=== PATIENT | female | born 1980 | race Caucasian/White ===

== ENCOUNTER 2016-09-25 10:56 | Outpatient (CLI) | payer OTHER ==
[2016-09-25 11:32] LABS: CALCIUM 9.2 mg/dL (8.5-10.3); CREATININE 0.6 mg/dL (0.4-1.0)
== END 2016-09-25 10:57 | disposition home or self-care (01) ==
LOC: LAB 10:56
DX: E87.5 Hyperkalemia (principal)
CPT/HCPCS: 36415; 80048

== ENCOUNTER 2017-02-28 17:43 | Emergency (ER) | payer OTHER ==
[2017-02-28] MEDS ORDERED: KETOROLAC 60 MG/2 ML VIAL IM STA (18:15)
[2017-02-28] MEDS ORDERED: diazePAM INJ 5 MG/ML SYRINGE IM STA (18:15)
[2017-02-28] MEDS ORDERED: DEXAMETHASONE 10 MG/ML VIAL PO STA (18:17)
--- NOTE | 2017-02-28 18:17 | ED Physician Documentation ---
History of Present Illness - Stated complaint Stated Complaint: RT HIP/BACK PX INTO LEG - Chief complaint Chief Complaint: Ext Problem - History obtained from History obtained from: Patient - History of Present Illness Timing: How many days ago (10) Pain level max: 8 Pain level now: 6 Improved by: rest Worsened by: standing, walking - Additonal information Additional information: Patient is a 36-year-old female who presents to the emergency department stating that she fell approximately 10 days ago after being tripped by her dogs. Landed on the right hip. The pain improved over the next few days, then started worsening 3-4 days ago. No recurrent injury. Occasionally feels the pain shoot to the right hip. Feels like it is deep in her back and pelvis. Has not had any lightheadedness, near syncope. No vaginal bleeding. No bruising. 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 HEENT: None Psych: None Musculoskeletal: Fibromyalgia Derm: None - Past Surgical History Past Surgical History: No HEENT: Myringotomy (tubes) - Present Medications Home Medications: Ambulatory Orders Medication Instructions Recorded Confirmed Meloxicam [Mobic] 15 mg PO DAILY PRN #20 tablet 02/28/17 diazePAM [Valium] 5 mg PO TID PRN #10 tablet 02/28/17 - Allergies Allergies/Adverse Reactions: Allergies Allergy/AdvReac Type Severity Reaction Status Date / Time No Known Drug Allergies Allergy Verified 03/17/16 19:36 - Social History Does the pt smoke?: Yes Smoking Status: Current every day smoker Does the pt drink ETOH?: No Does the pt have substance abuse?: No - Immunizations Immunizations are current?: Yes Immunizations: TDAP >10years/unknown - POLST Patient has POLST: No PD ED PE NORMAL - Vitals Vital signs reviewed: Yes - General General: Alert and oriented X 3, No acute distress - HEENT HEENT: Moist mucous membranes - Neck Neck: Supple, no meningeal sign - Cardiac Cardiac: RRR - Respiratory Respiratory: No respiratory distress, Clear bilaterally - Abdomen Abdomen: Soft, Non tender, Non distended - Back Back: No spinal TTP, Other (paraspinal spasm R low lumbar) - Derm Derm: Warm and dry - Extremities Extremities: No edema, Other (pain with internal and external rotation of the R hip. no bony tenderness. Normal skin color. ) - Neuro Neuro: Alert and oriented X 3, manager advertising 2-12 intact, No motor deficit, No sensory deficit, Normal speech, Other (normal bilateral lower extremity patellar and ankle jerk reflexes. Normal great toe extension bilaterally) Eye Opening: Spontaneous Motor: Obeys Commands Verbal: Oriented GCS Score: 15 - Psych Psych: Normal mood, Normal affect Results - Vitals Vitals: Vital Signs - 24 hr 02/28/17 02/28/17 17:48 19:09 Temperature 37.2 C 37.2 C Heart Rate 105 H 78 Respiratory 18 18 Rate Blood Pressure 130/81 H 111/64 O2 Saturation 99 100 Oxygen O2 Source Room air PD MEDICAL DECISION MAKING - ED course Complexity details: re-evaluated patient, considered differential (no cauda equina, no spinal epidural abscess, no fracture, no aortic dissection or evidence of aneursym rupture), d/w patient ED course: Patient is a 36-year-old female who presents to the emergency department with what appears to be a right lumbar strain. No midline tenderness over the spine. No bony tenderness over any of the pelvis or hip. Ambulating well. Will trial on pain medication for home and follow-up with her doctor. There is no visible bruising or ecchymosis. No evidence of retroperitoneal bleed. Patient counseled regarding signs and symptoms for which I believe and urgent re -evaluation would be necessary. Patient with good understanding of and agreement to plan and is comfortable going home at this time This document was made in part using voice recognition software. While efforts are made to proofread this document, sound alike and grammatical errors may occur. Departure - Departure Disposition: 01 Home, Self Care Clinical Impression: Low back strain Qualifiers: Encounter type: initial encounter Qualified Code(s): S39.012A - Strain of muscle, fascia and tendon of lower back, initial encounter Condition: Good Instructions: ED Sprain Strain Lumbar Follow-Up: Santosh Garcia MD [Primary Care Provider] - Within 1 week Prescriptions: diazePAM [Valium] 5 mg PO TID PRN #10 tablet PRN Reason: Spasms Meloxicam [Mobic] 15 mg PO DAILY PRN #20 tablet PRN Reason: pain Comments: do not drive or operate heavy machinery while taking the valium. return if you worsen. Do not drink alcohol or drive while on narcotic pain medicine. Note that many narcotic pain relievers also contain tylenol/acetaminophen. Please ensure that your total dose of acetaminophen from all sources does not exceed 3 grams (3000mg) per day. You may constipated on this medication, take a stool softener such as "Colace" twice a day while you are on it. Also recommend a gkve-tcn-thnozji laxative such as senna or MiraLAX any day that you do not have a bowel movement. If you received narcotic pain medication in the emergency department, do not drive or operate machinery for the next 24 hours. Discharge Date/Time: 02/28/17 19:09
[2017-02-28] MEDS ORDERED: DEXAMETHASONE 10 MG/ML VIAL ONE (18:38)
[2017-02-28] MEDS ORDERED: KETOROLAC 60 MG/2 ML VIAL ONE (18:38)
[2017-02-28] MEDS ORDERED: CHERRY SYRUP 10 ML UDC PO ONE (18:38)
[2017-02-28 19:11] VITALS: BP 111/64
== END 2017-02-28 19:09 | disposition home or self-care (01) ==
LOC: ED 17:43
DX: S39.012A Strain of muscle, fascia and tendon of lower back, initial encounter (principal); W01.0XXA Fall on same level from slipping, tripping and stumbling without subsequent striking against object, initial encounter; Y92.019 Unspecified place in single-family (private) house as the place of occurrence of the external cause; M79.7 Fibromyalgia; F17.200 Nicotine dependence, unspecified, uncomplicated
CPT/HCPCS: 96372; 99283; A9270

== ENCOUNTER 2017-06-14 08:34 | Emergency (ER) | payer OTHER ==
[2017-06-14 08:58] VITALS: BP 122/74
[2017-06-14] MEDS ORDERED: DEXAMETHASONE 10 MG/ML VIAL PO STA (09:17)
[2017-06-14] MEDS ORDERED: KETOROLAC 60 MG/2 ML VIAL IM STA (09:17)
--- NOTE | 2017-06-14 09:19 | ED Physician Documentation ---
PD HPI TRUNK INJURY - Stated complaint Stated Complaint: CHEST INJURY - Chief complaint Chief Complaint: General - History obtained from History obtained from: Patient, Family - History of Present Illness Location: Right chest Type of injury: Blunt / blow Timing - onset: How many days ago (3) Timing - duration: Days (3) Timing - details: Abrupt onset, Still present Quality: Pain, Sharp Improved by: Rest, Immobilization Worsened by: Moving, Palpating Associated symtptoms: No: Weakness, Numbness, Tingling, Swelling Where injury occured: Home Similar symptoms before: Has not had sx before Recently seen: Not recently seen - Additional information Additional information: 36-year-old female was at home 3 days ago when she went to sit down her couch and she sat down with the arm of the chair against her right chest wall. She bruised her breast with this and at the time had some pain which is now much worse. She is having some trouble moving around and it hurts to breathe. Review of Systems Constitutional: denies: Fever Eyes: denies: Decreased vision Ears: denies: Ear pain Nose: denies: Congestion Throat: denies: Sore throat Cardiac: reports: Chest pain / pressure. 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 HEENT: None Psych: None Musculoskeletal: Fibromyalgia Derm: None - Past Surgical History Past Surgical History: No HEENT: Myringotomy (tubes) - Present Medications Home Medications: Ambulatory Orders Medication Instructions Recorded Confirmed Meloxicam [Mobic] 15 mg PO DAILY PRN #20 tablet 02/28/17 diazePAM [Valium] 5 mg PO TID PRN #10 tablet 02/28/17 HYDROcod/ACETAM 5/325 [[place] 5/325] 1 - 2 ea PO Q6H PRN #15 tablet 06/14/17 - Allergies Allergies/Adverse Reactions: Allergies Allergy/AdvReac Type Severity Reaction Status Date / Time No Known Drug Allergies Allergy Verified 03/17/16 19:36 - Social History Does the pt smoke?: Yes Smoking Status: Current every day smoker Does the pt drink ETOH?: No Does the pt have substance abuse?: No - Immunizations Immunizations are current?: Yes Immunizations: TDAP >10years/unknown - POLST Patient has POLST: No PD ED PE NORMAL - Vitals Vital signs reviewed: Yes (normal ) - General General: Alert and oriented X 3, Well developed/nourished, Other (The patient is clutching the right side of her chest and appears to be in pain ) - HEENT HEENT: Atraumatic, PERRL, EOMI - Neck Neck: Supple, no meningeal sign - Cardiac Cardiac: RRR, No murmur - Respiratory Respiratory: No respiratory distress, Clear bilaterally, Other (There is chest wall tenderness to the right lateral chest wall over the ribs and right breast. ) - Abdomen Abdomen: Soft, Non tender - Back Back: No CVA TTP, No spinal TTP - Derm Derm: Normal color, Warm and dry, No rash - Extremities Extremities: No deformity, No edema - Neuro Neuro: No motor deficit, No sensory deficit Eye Opening: Spontaneous Motor: Obeys Commands Verbal: Oriented GCS Score: 15 - Psych Psych: Normal mood, Normal affect Results - Vitals Vitals: Vital Signs - 24 hr 06/14/17 08:52 Temperature 36.6 C Heart Rate 92 Respiratory 16 Rate Blood Pressure 122/74 O2 Saturation 100 Oxygen O2 Source Room air - Rads (name of study) ribs with chest Radiology: Prelim report reviewed (Impression: No radiographic evidence for acute rib fracture. No pneumothorax.), EMP read indepedently, See rad report PD MEDICAL DECISION MAKING - ED course Complexity details: reviewed results, re-evaluated patient, considered differential, d/w patient, d/w family ED course: 36-year-old female with a chest wall contusion has increased pain and has no evidence of fracture on x-ray she is administered dexamethasone orally and Toradol IM. We will provide some pain medication for the next week. Departure - Departure Disposition: 01 Home, Self Care Clinical Impression: Chest wall contusion Qualifiers: Encounter type: initial encounter Laterality: right Qualified Code(s): S20.211A - Contusion of right front wall of thorax, initial encounter Condition: Stable Instructions: ED Contusion Chest Wall, ED Contusion Vs Minor Fx Rib Follow-Up: Santosh Garcia MD [Primary Care Provider] - Prescriptions: HYDROcod/ACETAM 5/325 [[place] 5/325] 1 - 2 ea PO Q6H PRN #15 tablet PRN Reason: Pain
--- NOTE | 2017-06-14 09:38 | XRAY Preliminary Report ---
Exam: XR RIBS W/PA CHEST RT IMPRESSION: No radiographic evidence for acute rib fracture. No pneumothorax. [facility] SITE ID: [id number]
--- NOTE | 2017-06-14 09:39 | XRAY Report ---
EXAM: RIGHT/LEFT/BILATERAL RIB RADIOGRAPHY EXAM DATE: 06/14/2017 09:19 AM. CLINICAL HISTORY: Injury. COMPARISON: 10/17/2014. TECHNIQUE: 1 view of the chest and 2 views of the ribs. FINDINGS: Bones: BB markers placed at the areas of reported right rib pain. No fracture or bone lesion. Lungs: No focal opacities. No pneumothorax. No pleural effusions. Mediastinum: Heart and mediastinal contours are unremarkable. Other: None. IMPRESSION: No radiographic evidence for acute rib fracture. No pneumothorax. [facility] Referring Provider Line: [phone] SITE ID: [id number]
== END 2017-06-14 10:08 | disposition home or self-care (01) ==
LOC: ED 08:34
DX: S20.211A Contusion of right front wall of thorax, initial encounter (principal); W22.09XA Striking against other stationary object, initial encounter; F17.200 Nicotine dependence, unspecified, uncomplicated
CPT/HCPCS: 96372; 99283

== ENCOUNTER 2018-01-02 11:10 | Emergency (ER) | payer OTHER ==
[2018-01-02 12:25] LABS: BILIRUBIN,URINE NEGATIVE (NEGATIVE); GLUCOSE, URINE (UA) NEGATIVE (NEGATIVE); KETONES,URINE (UA) NEGATIVE (NEGATIVE); LEUKOCYTE ESTERASE, URINE NEGATIVE (NEGATIVE); NITRITE,URINE NEGATIVE (NEGATIVE); OCCULT BLOOD,URINE LARGE (NEGATIVE); PH,URINE 6.5 PH (5.0-7.5); PROTEIN,URINE NEGATIVE (NEGATIVE); UROBILINOGEN,URINE 0.2 (NORMAL) E.U./dL (NORMAL)
[2018-01-02 12:27] LABS: CLARITY,URINE HAZY (CLEAR); HCG UR QUAL NEGATIVE
[2018-01-02 12:40] LABS: BACTERIA,URINE Rare /HPF (None Seen); RBC,URINE TNTC /HPF (0-5); SQUAMOUS EPITHELIAL CELL,UR FEW Squamous (<= Few)
[2018-01-02] MEDS ORDERED: KETOROLAC 60 MG/2 ML VIAL IM STA (13:09)
[2018-01-02] MEDS ORDERED: LORazepam 0.5 MG TABLET PO STA (13:09)
--- NOTE | 2018-01-02 13:19 | ED Physician Documentation ---
History of Present Illness - Stated complaint Stated Complaint: PANIC ATTACK - Chief complaint Chief Complaint: General - History obtained from History obtained from: Patient, Family - History of Present Illness Timing: How many weeks ago (several) Pain level max: 7 Pain level now: 6 Improved by: nothing Worsened by: last son starting preschool - Additonal information Additional information: Patient is a 37-year-old female who presents to the emergency department with a worsening of her anxiety over the past several days. States has been unable to sleep. Has not been on any medication recently for this, is seen a counselor. They have talked about daily medication but have not started it yet. She denies any fevers, chills, chest pain. Denies any possibility of . Is not suicidal or homicidal. She does use cigarettes, but denies any use of alcohol or drugs including marijuana Review of Systems Constitutional: denies: Fever, Chills Ears: denies: Ear pain Nose: denies: Rhinorrhea / runny nose, Congestion Throat: denies: Sore throat Cardiac: denies: Chest pain / pressure Respiratory: denies: Cough GI: denies: Abdominal Pain, Vomiting, Diarrhea : denies: Now EGA Skin: denies: Rash Musculoskeletal: reports: Other (generalized body pain c/w her fibromyalgia). denies: Neck pain, Back pain Neurologic: denies: Generalized weakness, Headache Psychiatric: reports: Anxiety. 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 HEENT: None Psych: Anxiety Musculoskeletal: Fibromyalgia Derm: None - Past Surgical History Past Surgical History: Yes HEENT: Myringotomy (tubes) - Present Medications Home Medications: Ambulatory Orders Medication Instructions Recorded Confirmed LORazepam [Ativan] 0.5 mg PO Q6H PRN #10 tablet 01/02/18 Meloxicam [Mobic] 7.5 mg PO BID PRN #20 tablet 01/02/18 - Allergies Allergies/Adverse Reactions: Allergies Allergy/AdvReac Type Severity Reaction Status Date / Time No Known Drug Allergies Allergy Verified 01/02/18 11:23 - Social History Does the pt smoke?: Yes Smoking Status: Current every day smoker Does the pt drink ETOH?: No Does the pt have substance abuse?: No - Immunizations Immunizations are current?: Yes Immunizations: TDAP >10years/unknown - POLST Patient has POLST: No PD ED PE NORMAL - Vitals Vital signs reviewed: Yes - General General: Alert and oriented X 3, No acute distress, Other (tearful at times) - HEENT HEENT: PERRL, Moist mucous membranes, Pharynx benign, Other (R TM has chronic perforation. no purulent drainage. L TM with scarring but no fluid) - Neck Neck: Supple, no meningeal sign, No adenopathy - Cardiac Cardiac: RRR, Strong equal pulses - Respiratory Respiratory: No respiratory distress, Clear bilaterally - Abdomen Abdomen: Soft, Non tender, Non distended - Back Back: No CVA TTP, No spinal TTP - Derm Derm: Warm and dry - Extremities Extremities: No edema, No calf tenderness / cord - Neuro Neuro: Alert and oriented X 3 - Psych Psych: Other (tearful, anxious) Results - Vitals Vitals: Vital Signs - 24 hr 01/02/18 01/02/18 01/02/18 11:21 13:37 14:03 Temperature 36.7 C 36.8 C 36.6 C Heart Rate 95 76 85 Respiratory 22 16 16 Rate Blood Pressure 158/139 H 101/71 106/61 O2 Saturation 100 100 100 Oxygen O2 Source Room air - Labs Labs: Laboratory Tests 01/02/18 12:14 Urine Color LIGHT YELLOW Urine Clarity HAZY Urine pH 6.5 Ur Specific [place] <=1.005 Urine Protein NEGATIVE Urine Glucose (UA) NEGATIVE Urine Ketones NEGATIVE Urine Occult Blood LARGE H Urine Nitrite NEGATIVE Urine Bilirubin NEGATIVE Urine Urobilinogen 0.2 (NORMAL) Ur Leukocyte Esterase NEGATIVE Urine RBC TNTC H Urine WBC 0-3 Ur Squamous Epith Cells FEW Squamous Urine Bacteria Rare Ur Microscopic Review INDICATED Urine Culture Comments NOT INDICATED Urine HCG, Qual NEGATIVE PD MEDICAL DECISION MAKING - ED course Complexity details: reviewed results, re-evaluated patient, considered differential, d/w patient, d/w family ED course: Patient is a 37-year-old female who presents to the emergency department with increasing anxiety over the past several days. Given a dose of Ativan and feels much better. Was also given a dose of Toradol for her fibromyalgia pain. She is well-appearing, nontoxic. Afebrile. Not suicidal or homicidal. Will prescribe a small amount of Ativan for home and follow-up closely with her doctor. Patient counseled regarding signs and symptoms for which I believe and urgent re-evaluation would be necessary. Patient with good understanding of and agreement to plan and is comfortable going home at this time This document was made in part using voice recognition software. While efforts are made to proofread this document, sound alike and grammatical errors may occur. - Sepsis Event Vital Signs: Vital Signs - 24 hr 01/02/18 01/02/18 01/02/18 11:21 13:37 14:03 Temperature 36.7 C 36.8 C 36.6 C Heart Rate 95 76 85 Respiratory 22 16 16 Rate Blood Pressure 158/139 H 101/71 106/61 O2 Saturation 100 100 100 Oxygen O2 Source Room air Departure - Departure Disposition: 01 Home, Self Care Clinical Impression: Anxiety, Fibromyalgia Condition: Good Instructions: ED Panic Attack Follow-Up: SHAWN COPE DO [Primary Care Provider] - Within 1 week Prescriptions: LORazepam [Ativan] 0.5 mg PO Q6H PRN #10 tablet PRN Reason: Anxiety Meloxicam [Mobic] 7.5 mg PO BID PRN #20 tablet PRN Reason: Pain Comments: Return if you worsen. Use the Ativan as needed. Follow-up with your doctor for further prescriptions. You may benefit from a daily anxiety medication. Discharge Date/Time: 01/02/18 14:03
[2018-01-02 14:06] VITALS: BP 106/61
== END 2018-01-02 14:03 | disposition home or self-care (01) ==
LOC: ED 11:10
DX: F41.9 Anxiety disorder, unspecified (principal); M79.7 Fibromyalgia; F17.200 Nicotine dependence, unspecified, uncomplicated
CPT/HCPCS: 81001; 81025; 96372; 99283; A9270; 81003; 87086

== ENCOUNTER 2018-04-03 12:39 | Emergency (ER) | payer OTHER ==
[2018-04-03 12:50] VITALS: BP 104/65
--- NOTE | 2018-04-03 13:00 | ED Physician Documentation ---
History of Present Illness - Stated complaint Stated Complaint: R EAR PX - Chief complaint Chief Complaint: Heent - History obtained from History obtained from: Patient, Family - History of Present Illness Timing: How many days ago (2) Pain level max: 0 Pain level now: 0 Improved by: nothing Worsened by: nothing - Additonal information Additional information: Patient presents to the emergency department with right ear pain for the past several days and feeling of unsteadiness on her feet and vertigo. Similar to prior ear infections in the past. Still has holes in her bilateral ears from tympanostomy tubes that did not heal correctly. Has not noticed any drainage. No fevers. 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 HEENT: None Psych: Anxiety Musculoskeletal: Fibromyalgia Derm: None - Past Surgical History Past Surgical History: Yes HEENT: Myringotomy (tubes) - Present Medications Home Medications: Ambulatory Orders Medication Instructions Recorded Confirmed LORazepam [Ativan] 0.5 mg PO Q6H PRN #10 tablet 01/02/18 Meloxicam [Mobic] 7.5 mg PO BID PRN #20 tablet 01/02/18 Amoxicillin 500 mg PO TID #30 capsule 04/03/18 Meclizine [Antivert] 12.5 - 25 mg PO Q6H PRN #30 tablet 04/03/18 - Allergies Allergies/Adverse Reactions: Allergies Allergy/AdvReac Type Severity Reaction Status Date / Time No Known Drug Allergies Allergy Verified 04/03/18 12:45 - Social History Does the pt smoke?: Yes Smoking Status: Current every day smoker Does the pt drink ETOH?: No Does the pt have substance abuse?: No - Immunizations Immunizations are current?: Yes Immunizations: TDAP >10years/unknown - POLST Patient has POLST: No PD ED PE NORMAL - Vitals Vital signs reviewed: Yes - General General: Alert and oriented X 3, No acute distress - HEENT HEENT: Moist mucous membranes, Other (Bilateral tympanic membranes have perforations to them. 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 Will place on antibiotics. Has not seen ENT for several years, recommend that she follow-up with ENT given that her ears had not caused her issues for approximately 20 years and now has had 4 infections in the past year. Patient counseled regarding signs and symptoms for which I believe and urgent re- evaluation would be necessary. Patient with good understanding of and agreement to plan and is comfortable going home at this time This document was made in part using voice recognition software. While efforts are made to proofread this document, sound alike and grammatical errors may occur. Departure - Departure Disposition: 01 Home, Self Care Clinical Impression: Vertigo Otitis media Qualifiers: Otitis media type: suppurative Chronicity: acute Laterality: right Recurrence: not specified as recurrent Spontaneous tympanic membrane rupture: without spontaneous rupture Qualified Code(s): H66.001 - Acute suppurative otitis media without spontaneous rupture of ear drum, right ear Condition: Good Instructions: ED Otitis Media Acute Adult Follow-Up: [facility] [Provider Group] [facility] [Provider Group] Anthony Poe MD [Physician No Access] - SHAWN COPE DO [Primary Care Provider] - (in 1-2 weeks) Prescriptions: Amoxicillin 500 mg PO TID #30 capsule Meclizine [Antivert] 12.5 - 25 mg PO Q6H PRN #30 tablet PRN Reason: Vertigo Comments: Take all antibiotics until gone. Return if you worsen. Follow-up with your doctor for further evaluation and care. As your areas are beginning to give you more issues, you should follow-up with ENT for repeat evaluation. You will likely need a referral from your doctor. [facility] also has an office in [facility]
[2018-04-03] MEDS ORDERED: MECLIZINE 12.5 MG TABLET PO STA (13:01)
== END 2018-04-03 13:06 | disposition home or self-care (01) ==
LOC: ED 12:39
DX: H66.001 Acute suppurative otitis media without spontaneous rupture of ear drum, right ear (principal); R42 Dizziness and giddiness; F17.200 Nicotine dependence, unspecified, uncomplicated
CPT/HCPCS: 99283; A9270

== ENCOUNTER 2018-06-30 09:10 | Emergency (ER) | payer OTHER ==
[2018-06-30] MEDS ORDERED: DEXAMETHASONE 10 MG/ML VIAL PO STA (10:01)
[2018-06-30] MEDS ORDERED: IPRATROPIUM/ALBUTEROL 3 ML NEB INH STA (10:02)
--- NOTE | 2018-06-30 10:04 | ED Physician Documentation ---
PD HPI DYSPNEA - Stated complaint Stated Complaint: SOA,WHEEZING - Chief complaint Chief Complaint: Resp - History obtained from History obtained from: Patient, Family - History of Present Illness Timing - onset: How many days ago (3) Timing - onset during: Rest Timing - duration: Days (3) Timing - details: Gradual onset, Still present Inciting event(s): Exposure (ie smoke) Worsened by: Exertion Associated symptoms: Cough, Wheezing, Chest pain / discomfort Similar symptoms before: Has not had sx before Recently seen: Not recently seen - Additional information Additional information: Previously well 37-year-old female has developed a cough and congestion associated with being around a campfire. She is feeling it is difficult to get a full deep breath. She has not ever used an inhaler previously. She is not coughing up any phlegm. She does have a history of otitis and frequent infections and she does not feel that she has an infection today. Review of Systems Constitutional: denies: Fever Eyes: denies: Decreased vision Ears: denies: Ear pain Nose: denies: Rhinorrhea / runny nose, Congestion Throat: denies: Sore throat Cardiac: reports: Chest pain / pressure. denies: Palpitations, Pedal edema, Calf pain Respiratory: reports: Dyspnea, Cough, Wheezing GI: denies: Abdominal Pain, Nausea, Vomiting : denies: Dysuria, Frequency PD PAST MEDICAL HISTORY - Past Medical History Past Medical History: Yes Cardiovascular: None Respiratory: None Endocrine/Autoimmune: None GI: None [employer]: None HEENT: None Psych: Anxiety Musculoskeletal: Fibromyalgia Derm: None - Past Surgical History Past Surgical History: Yes HEENT: Myringotomy (tubes) - Present Medications Home Medications: Ambulatory Orders Medication Instructions Recorded Confirmed LORazepam [Ativan] 0.5 mg PO Q6H PRN #10 tablet 01/02/18 Meloxicam [Mobic] 7.5 mg PO BID PRN #20 tablet 01/02/18 Amoxicillin 500 mg PO TID #30 capsule 04/03/18 Meclizine [Antivert] 12.5 - 25 mg PO Q6H PRN #30 tablet 04/03/18 Albuterol Sulf [Ventolin Hfa 1 - 2 puffs INH Q4HR PRN #1 inhaler 06/30/18 Inhaler] predniSONE [Prednisone] 40 mg PO DAILY #10 tablet 06/30/18 - Allergies Allergies/Adverse Reactions: Allergies Allergy/AdvReac Type Severity Reaction Status Date / Time No Known Drug Allergies Allergy Verified 06/30/18 09:16 - Social History Does the pt smoke?: Yes Smoking Status: Current every day smoker Does the pt drink ETOH?: No Does the pt have substance abuse?: No - Immunizations Immunizations are current?: Yes Immunizations: TDAP >10years/unknown - POLST Patient has POLST: No PD ED PE NORMAL - Vitals Vital signs reviewed: Yes (normal ) - General General: No acute distress, Well developed/nourished - HEENT HEENT: Atraumatic, PERRL, EOMI, Moist mucous membranes, Pharynx benign, Other (There is a section of the right TM missing. There is no inflamation on either side. ) - Neck Neck: Supple, no meningeal sign, No bony TTP - Cardiac Cardiac: RRR, No murmur - Respiratory Respiratory: No respiratory distress, Clear bilaterally, Other (diminishded breath sounds. 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, No motor deficit, No sensory deficit, Normal speech Eye Opening: Spontaneous Motor: Obeys Commands Verbal: Oriented GCS Score: 15 - Psych Psych: Normal mood, Normal affect Results - Vitals Vitals: Vital Signs - 24 hr 06/30/18 09:13 Temperature 36.4 C L Heart Rate 74 Respiratory 16 Rate Blood Pressure 108/62 O2 Saturation 99 Oxygen O2 Source Room air - Labs Labs: Laboratory Tests 06/30/18 09:18 POC Whole Bld Glucose 78 PD MEDICAL DECISION MAKING - ED course Complexity details: considered differential, d/w patient ED course: 37-year-old female with a cough and congestion has diminished breath sounds on exam and no evidence of acute infection. She has exposure to smoke as a trigger for bronchospasm and she is administered dexamethasone 10 mg orally here in the emergency department. She is given a DuoNeb treatment and will place her on an albuterol inhaler. Departure - Departure Disposition: 01 Home, Self Care Clinical Impression: Reactive airway disease Qualifiers: Asthma severity: mild Asthma persistence: intermittent Asthma complication type: with acute exacerbation Qualified Code(s): J45.21 - Mild intermittent asthma with (acute) exacerbation Condition: Stable Instructions: ED Reactive Airway Disease Follow-Up: SHAWN COPE DO [Primary Care Provider] - Prescriptions: Albuterol Sulf [Ventolin Hfa Inhaler] 1 - 2 puffs INH Q4HR PRN #1 inhaler PRN Reason: Shortness Of Air/Wheezing predniSONE [Prednisone] 40 mg PO DAILY #10 tablet
[2018-06-30] MEDS ORDERED: CHERRY SYRUP 10 ML UDC PO ONE (10:15)
[2018-06-30 10:35] VITALS: BP 104/69
== END 2018-06-30 10:35 | disposition home or self-care (01) ==
LOC: ED 09:10
DX: J45.21 Mild intermittent asthma with (acute) exacerbation (principal); T59.811A Toxic effect of smoke, accidental (unintentional), initial encounter; J70.5 Respiratory conditions due to smoke inhalation; F17.200 Nicotine dependence, unspecified, uncomplicated
CPT/HCPCS: 94640; 99283; A9270

== ENCOUNTER 2018-12-16 11:45 | Emergency (ER) | payer OTHER ==
[2018-12-16 14:48] LABS: BILIRUBIN,URINE NEGATIVE (NEGATIVE); GLUCOSE, URINE (UA) NEGATIVE (NEGATIVE); KETONES,URINE (UA) NEGATIVE (NEGATIVE); LEUKOCYTE ESTERASE, URINE NEGATIVE (NEGATIVE); NITRITE,URINE NEGATIVE (NEGATIVE); OCCULT BLOOD,URINE TRACE-INTA (NEGATIVE); PH,URINE 5.5 PH (5.0-7.5); PROTEIN,URINE NEGATIVE (NEGATIVE); UROBILINOGEN,URINE 0.2 (NORMAL) E.U./dL (NORMAL)
[2018-12-16 14:49] LABS: CLARITY,URINE CLEAR (CLEAR)
[2018-12-16 14:50] LABS: HCG UR QUAL NEGATIVE
[2018-12-16] MEDS ORDERED: HYDROcod/ACETAM 5/325 MG TABLET PO STA (16:18)
[2018-12-16 16:26] LABS: BASOPHILS % (AUTO) 0.4 %; EOSINOPHILS # (AUTO) 0.1 10^3/uL (0.0-0.7); EOSINOPHILS % (AUTO) 1.3 %; HGB - HEMOGLOBIN 13.4 g/dL (12.0-16.0); LYMPHOCYTES # (AUTO) 1.5 10^3/uL (1.5-3.5); LYMPHOCYTES % (AUTO) 21.6 %; MEAN CORPUSCULAR HEMOGLOBIN 29.9 pg (27.0-31.0); MEAN CORPUSCULAR HGB CONC 31.2 g/dL (32.0-36.0); MONOCYTES # (AUTO) 0.4 10^3/uL (0.0-1.0); MONOCYTES % (AUTO) 5.7 %; NEUTROPHILS # (AUTO) 4.8 10^3/uL (1.5-6.6); NEUTROPHILS % (AUTO) 70.9 %; PLT - PLATELET COUNT 295 10^3/uL (130-450); RED BLOOD COUNT 4.48 10^6/uL (4.20-5.40); RED CELL DISTRIBUTION WIDTH 13.2 % (12.0-15.0); WHITE BLOOD COUNT 6.8 x10^3/uL (4.8-10.8)
--- NOTE | 2018-12-16 16:28 | Ultrasound Report ---
Reason: right pelvic pain Procedure Date: 12/16/2018 Accession Number: [id number] / [id number] Procedure: US - Pelvic Complete CPT Code: FULL RESULT: EXAM: PELVIC ULTRASOUND EXAM DATE: 12/16/2018 03:14 PM. CLINICAL HISTORY: Right pelvic pain. The patient has a history of ovarian cysts with rupture. COMPARISON: PELVIC NON OB W/DOPPLER 03/17/2016 8:40 PM. TECHNIQUE: Realtime transabdominal pelvic scan performed to identify the uterus and adnexa and as an overview of other pelvic structures, followed by transvaginal scan to provide greater detail of the uterus and adnexa, with static image documentation. FINDINGS: Uterus: 9.1 x 4.4 x 6 cm, volume 126.5 cc. Anteverted position. Normal overall size and echotexture. Masses: None. Endometrium: 8 mm. Normal. Cervix: Unremarkable. Right Ovary: 3.8 x 1.8 x 3.2 cm, volume 10.9 cc. Normal echotexture and blood flow. Physiologic ovarian follicles. Left Ovary: 3.3 x 2.3 x 2.6 cm, volume 10 cc. Normal echotexture and blood flow. Physiologic ovarian follicles. Free Fluid: Small amount. Other: None. IMPRESSION: Normal pelvic ultrasound. RAD[facility]
[2018-12-16 16:35] LABS: ALBUMIN 4.8 g/dL (3.2-5.5); ALBUMIN/GLOBULIN RATIO 1.4 (1.0-2.2); BILIRUBIN,TOTAL 0.5 mg/dL (0.2-1.0); CALCIUM 9.5 mg/dL (8.5-10.3); CREATININE 0.5 mg/dL (0.4-1.0); TOTAL PROTEIN 8.3 g/dL (6.7-8.2)
[2018-12-16 16:38] VITALS: BP 120/86
--- NOTE | 2018-12-16 16:41 | ED Physician Documentation ---
PD HPI ABD PAIN - Stated complaint Stated Complaint: FEMALE /BACK PX - Chief complaint Chief Complaint: Abd Pain - History obtained from History obtained from: Patient - History of Present Illness Timing - onset: How many days ago (4) Timing - details: Still present Quality: Pain Location: RLQ Radiation: Lower back Associated symptoms: Vaginal bleeding (spotting) Similar symptoms before: Diagnosis (ovarian cysts) - Additional information Additional information: The patient is a 38-year-old female who presents with right lower quadrant normal/pelvic pain that started 4 days ago, with radiation of pain to her lower back. She reports bloody vaginal discharge, with spotting when wiping. Her last menstrual period was 3 weeks ago. She denies fever, dysuria, nausea or vomiting. She reports it feels the same as when she has been diagnosed with ovarian cyst in the past. She has previously undergone laparoscopy. Review of Systems Constitutional: denies: Fever Nose: denies: Congestion Throat: denies: Sore throat Cardiac: denies: Chest pain / pressure Respiratory: denies: Dyspnea, Cough GI: reports: Abdominal Pain. denies: Nausea, Vomiting, Diarrhea : reports: LMP (3 weeks ago.), Vaginal bleeding. 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 HEENT: None Psych: Anxiety Musculoskeletal: Fibromyalgia Derm: None - Past Surgical History Past Surgical History: Yes HEENT: Myringotomy (tubes) - Present Medications Home Medications: Ambulatory Orders Medication Instructions Recorded Confirmed LORazepam [Ativan] 0.5 mg PO Q6H PRN #10 tablet 01/02/18 Meloxicam [Mobic] 7.5 mg PO BID PRN #20 tablet 01/02/18 Amoxicillin 500 mg PO TID #30 capsule 04/03/18 Meclizine [Antivert] 12.5 - 25 mg PO Q6H PRN #30 tablet 04/03/18 Albuterol Sulf [Ventolin Hfa 1 - 2 puffs INH Q4HR PRN #1 inhaler 06/30/18 Inhaler] predniSONE [Prednisone] 40 mg PO DAILY #10 tablet 06/30/18 - Allergies Allergies/Adverse Reactions: Allergies Allergy/AdvReac Type Severity Reaction Status Date / Time No Known Drug Allergies Allergy Verified 12/16/18 12:20 - Social History Does the pt smoke?: Yes Smoking Status: Current every day smoker Does the pt drink ETOH?: No Does the pt have substance abuse?: No - Immunizations Immunizations are current?: Yes - POLST Patient has POLST: No PD ED PE NORMAL - Vitals Vital signs reviewed: Yes (Normal) - General General: Alert and oriented X 3, Well developed/nourished - HEENT HEENT: Atraumatic, Pharynx benign - Neck Neck: No adenopathy, No JVD - Cardiac Cardiac: RRR - Respiratory Respiratory: No respiratory distress, Clear bilaterally - Abdomen Abdomen: Soft, Other (Minimal tenderness to palpation in the right lower quadrant/adnexal region, without rebound or guarding.) - Back Back: No CVA TTP - Derm Derm: No rash - Extremities Extremities: No edema, No calf tenderness / cord - Neuro Neuro: Alert and oriented X 3, No motor deficit, Normal speech Results - Vitals Vitals: Oxygen O2 Source Room air - Labs Labs: Laboratory Tests 12/16/18 12/16/18 12/16/18 13:19 14:10 14:10 WBC 6.8 RBC 4.48 Hgb 13.4 Hct 43.0 MCV 96.0 MCH 29.9 MCHC 31.2 L RDW 13.2 Plt Count 295 MPV 11.0 H Neut # (Auto) 4.8 Lymph # (Auto) 1.5 King # (Auto) 0.4 Eos # (Auto) 0.1 Baso # (Auto) 0.0 Absolute Nucleated RBC 0.00 Nucleated RBC % 0.0 Sodium 139 Potassium 3.7 Chloride 100 L Carbon Dioxide 28 Anion Gap 11.0 BUN 10 Creatinine 0.5 Estimated GFR (MDRD) 140 Glucose 95 Calcium 9.5 Total Bilirubin 0.5 AST 17 ALT 13 Alkaline Phosphatase 44 Total Protein 8.3 H Albumin 4.8 Globulin 3.5 Albumin/Globulin Ratio 1.4 Lipase 41 Urine Color YELLOW Urine Clarity CLEAR Urine pH 5.5 Ur Specific [place] 1.025 Urine Protein NEGATIVE Urine Glucose (UA) NEGATIVE Urine Ketones NEGATIVE Urine Occult Blood TRACE-INTA Urine Nitrite NEGATIVE Urine Bilirubin NEGATIVE Urine Urobilinogen 0.2 (NORMAL) Ur Leukocyte Esterase NEGATIVE Ur Microscopic Review NOT INDICATED Urine Culture Comments NOT INDICATED Urine HCG, Qual NEGATIVE - Rads (name of study) Pelvic U/S Radiology: Prelim report reviewed, EMP read contemporaneously, See rad report (Normal pelvic ultrasound.) PD MEDICAL DECISION MAKING - ED course Complexity details: reviewed results, re-evaluated patient, considered differential, d/w patient, d/w family ED course: The underlying cause of the patient's right lower quadrant/pelvic pain is uncertain at this time. Urinalysis is negative, with no evidence of urinary tract infection, and negative test. There is no hematuria, and I doubt renal colic. CBC is normal, with a white count of 6.8. Pelvic ultrasound reveals no significant ovarian cyst or rupture, and normal blood flow, without evidence of torsion. Her presentation does not suggest appendicitis. Treatment in the emergency department included administration of Vicodin 1 tablet orally. On reexamination the patient's abdomen does not suggest acute surgical pathology. I discussed with her and her family the results of the work-up, symptomatic treatment and outpatient follow-up, as well as potentially worrisome signs or symptoms that should prompt reevaluation in the emergency department. Departure - Departure Disposition: 01 Home, Self Care Clinical Impression: Abdominal pain Qualifiers: Abdominal location: lower abdomen, unspecified Qualified Code(s): R10.30 - Lower abdominal pain, unspecified Condition: Stable Instructions: ED Abdominal Pain Unkn Cause Follow-Up: Basim Lares MD [Physician No Access] - SHAWN COPE DO [Primary Care Provider] - Comments: Drink plenty of fluids. You can use ibuprofen, up to 800 mg 3 times daily if needed for pain. Follow-up with your c winforms developer next week as scheduled. Return to the emergency department if you develop increasing pain, persistent vomiting, or otherwise worsening symptoms. Discharge Date/Time: 12/16/18 16:53
== END 2018-12-16 16:53 | disposition home or self-care (01) ==
LOC: ED 11:45
DX: R10.31 Right lower quadrant pain (principal); R10.2 Pelvic and perineal pain; M54.5 Low back pain; F17.200 Nicotine dependence, unspecified, uncomplicated
CPT/HCPCS: 36415; 76830; 76856; 80053; 81003; 81025; 83690; 85025; 99284; A9270; 81001; 87086

== ENCOUNTER 2019-03-15 10:18 | Outpatient (CLI) | payer OTHER ==
[2019-03-15 10:47] LABS: BASOPHILS % (AUTO) 0.4 %; EOSINOPHILS # (AUTO) 0.1 10^3/uL (0.0-0.7); EOSINOPHILS % (AUTO) 2.7 %; LYMPHOCYTES % (AUTO) 23.2 %; MEAN CORPUSCULAR HEMOGLOBIN 30.2 pg (27.0-31.0); MEAN CORPUSCULAR HGB CONC 31.3 g/dL (32.0-36.0); MEAN CORPUSCULAR VOLUME 96.7 fL (81.0-99.0); MEAN PLATELET VOLUME 10.1 fL (7.9-10.8); MONOCYTES # (AUTO) 0.3 10^3/uL (0.0-1.0); NEUTROPHILS % (AUTO) 67.5 %; PLT - PLATELET COUNT 285 10^3/uL (130-450); RED BLOOD COUNT 3.97 10^6/uL (4.20-5.40); RED CELL DISTRIBUTION WIDTH 13.6 % (12.0-15.0); WHITE BLOOD COUNT 4.5 x10^3/uL (4.8-10.8)
== END 2019-03-15 10:19 | disposition home or self-care (01) ==
LOC: LAB 10:18
PROVIDERS: ATTEND Obstetrics & Gynecology
DX: Z01.812 Encounter for preprocedural laboratory examination (principal); R10.2 Pelvic and perineal pain
CPT/HCPCS: 36415; 85025; 86850; 86900; 86901; 86920

== ENCOUNTER 2019-03-17 10:08 | Inpatient (IN) | payer OTHER ==
[2019-03-17] MEDS ORDERED: LACTATED RINGERS 1,000 ML IV ONE ×3 (11:34→19:22)
--- NOTE | 2019-03-17 11:46 | ANESTHESIA ---
Pre-Anesthesia VS, & Labs - Diagnosis Pelvic pain - Procedure Lap vaginal hysterectomy Vital Signs: Temp Pulse Resp BP Pulse Ox 36.4 C L 64 16 119/76 97 03/17/19 11:34 03/17/19 11:34 03/17/19 11:34 03/17/19 11:34 03/17/19 11:34 Height 5 ft 6 in Weight (kg) 46 kg Body Mass Index 16.6 - NPO >8 hours - Is Patient ?: No - Lab Results Lab results reviewed: Yes Home Medications and Allergies Clobetasol 0.05% Oint [Temovate 0.05% Oint] 1 applic TOP 03/03/19 Hydrocodone/Acetaminophen [Hydrocodone-Acetamin 5-325 mg] 1 each PO 03/03/19 Allergies/Adverse Reactions: Allergies Allergy/AdvReac Type Severity Reaction Status Date / Time No Known Drug Allergies Allergy Verified 03/03/19 12:26 Anes History & Medical History - Anesthetic History Anesthesia Complications: reports: No previous complications Family history of Anesthesia Complications: Denies Family history of Malignant Hyperthermia: Denies - Medical History Cardiovascular: reports: None, Other Pulmonary: reports: None Gastrointestinal: reports: None Urinary: reports: Other Neuro: reports: None Musculoskeletal: reports: None, Fibromyalgia Endocrine/Autoimmune: reports: None Blood Disorders: reports: None Skin: reports: None Smoking Status: Current every day smoker Psychosocial: reports: Anxiety - Surgical History Eyes Ears Nose Throat (EENT): Myringotomy (tubes) Gynecologic: Other Exam General: Alert, Oriented x3 Dental: WNL, TMJ Mouth Opening: Greater than 4 Fingerbreadths Neck Mobility: Normal Mallampati classification: I Thyromental Distance: greater than 6 cm Respiratory: Lungs clear Cardiovascular: Regular rate Neurological: Normal speech Mental/Cognitive Status: Alert/Oriented X3 Cognitive Status: Within normal limits Plan Anesthesia Type: General Consent for Procedure(s) Verified and Reviewed: Yes Code Status: Attempt Resuscitation ASA classification: 2-Mild systemic disease Is this case an emergency?: No
[2019-03-17 11:53] LABS: HCG UR QUAL NEGATIVE
[2019-03-17] MEDS ORDERED: VASOPRESSIN 20 UNIT/ML VIAL ONE (12:07)
[2019-03-17] MEDS ORDERED: VASOPRESSIN 20 UNIT/ML VIAL IVP ONE ×2 (13:02)
[2019-03-17] MEDS ORDERED: SODIUM CHLORIDE 0.9% 10 ML VIAL IVP ONE ×2 (13:03)
[2019-03-17] MEDS ORDERED: ONDANSETRON 4 MG/2 ML VIAL IVP PRN (14:29)
--- NOTE | 2019-03-17 14:33 | OPERATIVE REPORT ---
Operative Report - General Admit Date: 03/17/19 Procedure Date: 03/17/19 Planned Procedure: total vaginal hysterectomy, bilateral salpingectomy, cystoscopy Pre-Op Diagnosis: chronic pelvic pain Procedure Performed: total vaginal hysterectomy, cystoscopy Post Op Diagnosis: same as above - Procedure Note Primary Surgeon: Chico Carlton Secondary Surgeon: Ayanna Viera Anesthesia Technique: General ET tube Pathology: uterus with cervix IV Fluids (mL): 800 Estimated Blood Loss (mL): 100 Urine Output (mL): 40 Indications: chronic pelvic pain Findings: small globular uterus, small hemorrhagic cyst on right ovary. Fallopian tubes unable to be clearly visualized after hysterectomy, so no salpingectomy performed. Cystoscopy with no injury to mucosa and brisk bilateral ureteral jets. Some purple vascular appearing vesicles in bladder near left ureteral orifice and trigone. Complications: none - Other Other Information/Narrative: Procedure: The patient was taken to the operating room. After general anesthesia was found to be adequate the patient was placed in the high dorsal lithotomy position and an exam under anesthesia was performed with findings as noted above. She was then prepped and draped in the usual sterile fashion and a surgical time out was performed. A weighted speculum was placed into the vagina, and the cervix grasped with two thyroid-Quinten clamps. The cervix was then injected circumferentially with vasopressin 20 units diluted in 29 ml of normal saline. The cervix was circumferentially incised with the bovie. The anterior vaginal mucosa was sharply dissected off of the cervix until a plane was identified into the vesico-uterine space, which was sharply entered. A sanford catheter was inserted through the urethra and clear yellow urine returned. A Kaleigh retractor was inserted anteriorly for visualization. The posterior cul-de-sac was entered into sharply without difficulty using heavy Lazo scissors. The cul-de-sac was digitally explored with no evidence of adhesion, and the long weighted speculum was replaced in the cul-de-sac after tagging the peritoneum to the edge. The right ovary was seen in the posterior cul de sac and noted to have a small simple cyst. The left ovary was not seen. At this point, a Kerrie clamp was placed over the uterosacral ligaments on either side. These were then transected and suture ligated with #0 Vicryl. Hemostasis was assured. The cardinal ligaments, uterine arteries and broad ligament on each side were sequentially clamped, transected and ligated, with hemostasis assured at each pedicle. Next, the right cornua was clamped with Kerrie clamps, transected and the pedicle was secured with a free tie then suture ligated with excellent hemostasis. The left cornua was then clamped with a Kerrie clamp, transected and similarly secured. The specimen was passed off the field. Hemostasis was maintained. Some bleeding was noted along the pedicle line on the patient's right. This was secured with a running suture of 0 vicryl. The ovaries on either side were not visualized despite several attempts to sweep them into the surgical field; further attempts at visualizing and removing the fallopian tubes were not made. The vaginal cuff was closed horizontally with two overlapping running sutures of #0 Vicryl including the underlying peritoneum in the stitches. Each side of the tagged uterosacral ligaments were incorporated into the closure for postoperative support. The cuff was copiously irrigated and noted to be hemostatic. All instruments were removed from the vagina. Cystoscopy was performed, and revealed an intact bladder with no evidence of injury and bilateral ureteral jets. Several small purple vesicles were noted in the bladder near the left ureteral orificie. A pelvic exam performed at the conclusion of the procedure revealed no retained foreign objects in the vagina. The patient was taken out of dorsal lithotomy position and awakened from general anesthesia without difficulty. The patient was taken to the PACU in stable condition. Sponge, lap, needle and instrument counts were correct times two. No complications were appreciated.
[2019-03-17] MEDS ORDERED: KETOROLAC 30 MG/ML VIAL IVP SCH ×2 (15:00→20:00)
[2019-03-17] MEDS: LACTATED RINGERS 1,000 ML IV SCH ×3 (15:40→20:35)
[2019-03-17] MEDS ORDERED: LACTATED RINGERS 250 ML IV ONE (16:15)
[2019-03-17] MEDS: ACETAMINOPHEN 500 MG TABLET PO SCH ×2 (16:50→22:34)
[2019-03-17] MEDS: oxyCODONE 5 MG TABLET PO PRN (17:37)
[2019-03-17] MEDS: DOCUSATE SODIUM 100 MG CAPSULE PO SCH (20:41)
[2019-03-17] MEDS ORDERED: LACTATED RINGERS 1,000 ML IV SCH (21:21)
[2019-03-17 21:44] LABS: BASOPHILS % (AUTO) 0.1 %; LYMPHOCYTES # (AUTO) 0.7 10^3/uL (1.5-3.5); LYMPHOCYTES % (AUTO) 4.7 %; MEAN CORPUSCULAR HEMOGLOBIN 31.5 pg (27.0-31.0); MEAN CORPUSCULAR HGB CONC 31.6 g/dL (32.0-36.0); MEAN CORPUSCULAR VOLUME 99.5 fL (81.0-99.0); MEAN PLATELET VOLUME 10.2 fL (7.9-10.8); MONOCYTES # (AUTO) 0.7 10^3/uL (0.0-1.0); MONOCYTES % (AUTO) 4.8 %; NEUTROPHILS # (AUTO) 13.6 10^3/uL (1.5-6.6); NEUTROPHILS % (AUTO) 89.7 %; PLT - PLATELET COUNT 274 10^3/uL (130-450); RED BLOOD COUNT 2.16 10^6/uL (4.20-5.40); RED CELL DISTRIBUTION WIDTH 13.7 % (12.0-15.0); WHITE BLOOD COUNT 15.2 x10^3/uL (4.8-10.8)
[2019-03-17 21:55] LABS: HGB - HEMOGLOBIN 6.8 g/dL (12.0-16.0)
[2019-03-17] MEDS ORDERED: IOVERSOL 320 100 ML VIAL IVP ONE ×2 (22:13→23:11)
--- NOTE | 2019-03-17 22:15 | PROVIDER PROGRESS NOTE ---
Subjective - Prog Note Date Prog Note Date: 03/17/19 Prog Note Time: 22:15 - Subjective Subjective: Pt reports diffuse abdominal pain, mild-moderate, and nausea. Last emesis small clear fluid shortly prior to my evaluation. Has not yet ambulated. Voiding to sanford. Has not passed gas. Objective - Vital Signs/Intake & Output Vital Signs: Vital Signs x48h Temp Pulse Pulse Pulse Resp BP BP 03/17/19 21:56 37.1 C 91 14 03/17/19 19:05 03/17/19 19:03 03/17/19 18:55 36.7 C 90 17 03/17/19 16:59 36.8 C 83 16 92/52 L 03/17/19 16:12 69 90/44 L 03/17/19 15:59 69 90/44 L 03/17/19 15:49 36.6 C 62 16 98/51 L 03/17/19 15:42 36.5 C 65 16 03/17/19 15:00 36.7 C 58 L 19 102/52 L 03/17/19 14:45 36.7 C 71 17 114/64 03/17/19 14:40 36.6 C 68 18 105/55 L 03/17/19 14:35 36.3 C L 69 70 H 98/59 L 03/17/19 14:30 36.3 C L 68 17 112/69 BP Pulse Ox 03/17/19 21:56 76/38 L 100 03/17/19 19:05 91/48 L 100 03/17/19 19:03 75/47 L 03/17/19 18:55 87/50 L 100 03/17/19 16:59 100 03/17/19 16:12 03/17/19 15:59 03/17/19 15:49 100 03/17/19 15:42 89/46 L 100 03/17/19 15:00 100 03/17/19 14:45 100 03/17/19 14:40 99 03/17/19 14:35 100 03/17/19 14:30 100 Intake & Output: Intake & Output 03/14/19 03/15/19 03/16/19 03/17/19 23:59 23:59 23:59 23:59 Intake Total 2721.666 Output Total 700 Balance 666 - Objective General Appearance: positive: Alert, Other (pale) Abdomen: positive: Other (soft, mildly distended, diffuse mild tenderness with no rebound or guarding) Skin: positive: Warm, Dry - Lab Results Fish Bones: 03/17/19 21:36 Other Labs: Lab Results x24hrs 03/17/19 03/17/19 Range/Units 21:36 11:38 WBC 15.2 H (4.8-10.8) x10^3/uL RBC 2.16 L (4.20-5.40) 10^6/uL Hgb 6.8 L* (12.0-16.0) g/dL Hct 21.5 L (37.0-47.0) % MCV 99.5 H (81.0-99.0) fL MCH 31.5 H (27.0-31.0) pg MCHC 31.6 L (32.0-36.0) g/dL RDW 13.7 (12.0-15.0) % Plt Count 274 (130-450) 10^3/uL MPV 10.2 (7.9-10.8) fL Neut # (Auto) 13.6 H (1.5-6.6) 10^3/uL Lymph # (Auto) 0.7 L (1.5-3.5) 10^3/uL [place] # (Auto) 0.7 (0.0-1.0) 10^3/uL Eos # (Auto) 0.0 (0.0-0.7) 10^3/uL Baso # (Auto) 0.0 (0.0-0.1) 10^3/uL Absolute Nucleated RBC 0.00 x10^3/uL Nucleated RBC % 0.0 /100WBC Ur Specific [place] 1.015 (1.002-1.030) Urine HCG, Qual NEGATIVE Assessment/Plan - Problem List (1) Anemia Impression: POD#0 from TVH/cysto with low UOP, hypotension and drop in Hct 38-->21. UOP improving slightly, with 60 ml over past hour (1.3 ml/kg/h this hour) and clear yellow in sanford. Abdomen soft and non acute, pt mentating well. Will get CMP, coags, CT abdo-pelvis to evaluate for intra-abdominal bleeding. Ordered crossmatch and initiation of 1u PRBC transfusion. Re-evaluate pt after return from CT. If concern for intra-abdominal bleeding, would return to OR for diagnostic l/s, possible laparotomy. Qualifiers: Anemia type: unspecified type Qualified Code(s): D64.9 - Anemia, un specified
[2019-03-17 22:29] LABS: INR 1.3 (0.8-1.2); PT - PROTHROMBIN TIME 14.4 secs (9.9-12.6)
[2019-03-17 22:34] LABS: ALBUMIN 2.9 g/dL (3.2-5.5); ALBUMIN/GLOBULIN RATIO 1.5 (1.0-2.2); ALKALINE PHOSPHATASE 23 IU/L (42-121); ALT ALANINE AMINOTRANSFERASE < 10 IU/L (10-60); AST ASPARTATE AMINOTRANSFERASE 16 IU/L (10-42); BUN - BLOOD UREA NITROGEN 14 mg/dL (6-20); CALCIUM 7.8 mg/dL (8.5-10.3); CARBON DIOXIDE - CO2 25 mmol/L (21-32); CHLORIDE 106 mmol/L (101-111); CREATININE 0.7 mg/dL (0.4-1.0); GFR - MDRD 95 (>89); GLUCOSE 172 mg/dL (70-100); SODIUM 137 mmol/L (135-145); TOTAL PROTEIN 4.8 g/dL (6.7-8.2)
[2019-03-17] MEDS ORDERED: SODIUM CHLORIDE 0.9% 500 ML ONE (22:35)
[2019-03-17] MEDS ORDERED: SODIUM CHLORIDE FLUSH 0.9% 10 ML SYRINGE ONE ×2 (22:36→23:45)
[2019-03-17 22:44] LABS: PARTIAL THROMBOPLASTIN TIME 27.5 secs (24.9-33.3)
--- NOTE | 2019-03-17 23:42 | CT Report ---
Reason: TVH today, drop in HCT, low UOP, r/o bleeding Procedure Date: 03/17/2019 Accession Number: [id number] / [id number] Procedure: CT - Abdomen/Pelvis W CPT Code: Final Report FULL RESULT: EXAM: CT ABDOMEN AND PELVIS EXAM DATE: 03/17/2019 11:05 PM. CLINICAL HISTORY: TVH today, drop in HCT, low UOP, r/o bleeding. COMPARISONS: None. TECHNIQUE: Routine helical CT imaging was performed through the abdomen and pelvis. IV contrast: OPTI 320 100ML. Enteric contrast: No. Reconstructions: Coronal and sagittal. In accordance with CT protocol optimization, one or more of the following dose reduction techniques were utilized for this exam: automated exposure control, adjustment of mA and/or KV based on patient size, or use of iterative reconstructive technique. FINDINGS: Lung Bases: Unremarkable. Liver: Normal. No masses. Gallbladder/Bile Ducts: Unremarkable. Spleen: Normal. Pancreas: Normal. Adrenal Glands: Normal. Kidneys: Normal. No masses or hydronephrosis. Peritoneal Cavity/Bowel: Large amount of dense fluid throughout the abdomen and pelvis with hyperdensity and pelvis consistent with hemoperitoneum. There are several small contrast blushes in the right adnexa consistent with active bleeding (series 3, images 61 through 74). Small foci of air in the pelvis are likely extraluminal and related to recent surgery. No bowel obstruction or evidence of significant bowel wall thickening. Pelvic Organs: Status post hysterectomy. Ovaries not well seen although there is possible right ovarian follicle noted (series 3, image 68). Vasculature: No abdominal aortic aneurysm. As above, there are several small contrast blushes in the right adnexa consistent with active bleeding with associated large hemoperitoneum including dense blood products in the pelvis. IVC is collapsed. Bones: No significant abnormality. Other: Hunter catheter in the bladder. There is air in the bladder. IMPRESSION: 1. CRITICAL RESULT. Large hemoperitoneum with dense blood in the pelvis and several small areas of active bleeding in the right adnexa. 2. Postsurgical changes of recent hysterectomy. 3. Collapsed IVC which may indicate hypotension. Correlate clinically. 4. Hunter catheter in bladder. Air in bladder is probably related to catheterization. [facility] The call report notification system was initiated by Dr. Nan Gunter at 11:29 PM on 03/17/2019. The above critical report findings were discussed with Dr. Estephania Carlton by Dr. Nan Gunter at 11:34 PM on 03/17/2019.
--- NOTE | 2019-03-17 23:48 | PROVIDER PROGRESS NOTE ---
Objective - Vital Signs/Intake & Output Vital Signs: Vital Signs x48h Temp Pulse Pulse Pulse Resp BP BP 03/17/19 23:31 36.6 C 80 16 03/17/19 23:20 36.6 C 92 16 90/46 L 03/17/19 23:02 37.1 C 77 15 89/55 L 03/17/19 21:56 37.1 C 91 14 03/17/19 19:05 03/17/19 19:03 03/17/19 18:55 36.7 C 90 17 03/17/19 16:59 36.8 C 83 16 92/52 L 03/17/19 16:12 69 90/44 L 03/17/19 15:59 69 90/44 L 03/17/19 15:49 36.6 C 62 16 98/51 L BP Pulse Ox 03/17/19 23:31 94/52 L 100 03/17/19 23:20 03/17/19 23:02 03/17/19 21:56 76/38 L 100 03/17/19 19:05 91/48 L 100 03/17/19 19:03 75/47 L 03/17/19 18:55 87/50 L 100 03/17/19 16:59 100 03/17/19 16:12 03/17/19 15:59 03/17/19 15:49 100 Intake & Output: Intake & Output 03/14/19 03/15/19 03/16/19 03/17/19 23:59 23:59 23:59 23:59 Intake Total 2796.666 Output Total 735 Balance 2061.666 - Lab Results Fish Bones: 03/17/19 21:36 03/17/19 22:14 Other Labs: Lab Results x24hrs 03/17/19 03/17/19 03/17/19 Range/Units 22:14 22:14 21:36 WBC 15.2 H (4.8-10.8) x10^3/uL RBC 2.16 L (4.20-5.40) 10^6/uL Hgb 6.8 L* (12.0-16.0) g/dL Hct 21.5 L (37.0-47.0) % MCV 99.5 H (81.0-99.0) fL MCH 31.5 H (27.0-31.0) pg MCHC 31.6 L (32.0-36.0) g/dL RDW 13.7 (12.0-15.0) % Plt Count 274 (130-450) 10^3/uL MPV 10.2 (7.9-10.8) fL Neut # (Auto) 13.6 H (1.5-6.6) 10^3/uL Lymph # (Auto) 0.7 L (1.5-3.5) 10^3/uL [place] # (Auto) 0.7 (0.0-1.0) 10^3/uL Eos # (Auto) 0.0 (0.0-0.7) 10^3/uL Baso # (Auto) 0.0 (0.0-0.1) 10^3/uL Absolute Nucleated RBC 0.00 x10^3/uL Nucleated RBC % 0.0 /100WBC PT 14.4 H (9.9-12.6) secs INR 1.3 H (0.8-1.2) APTT 27.5 (24.9-33.3) secs Fibrinogen 221 (220-496) mg/dL Sodium 137 (135-145) mmol/L Potassium 4.5 (3.5-5.0) mmol/L Chloride 106 (101-111) mmol/L Carbon Dioxide 25 (21-32) mmol/L Anion Gap 6.0 (6-13) BUN 14 (6-20) mg/dL Creatinine 0.7 (0.4-1.0) mg/dL Estimated GFR (MDRD) 95 (>89) Glucose 172 H (70-100) mg/dL Calcium 7.8 L (8.5-10.3) mg/dL Total Bilirubin 1.0 (0.2-1.0) mg/dL AST 16 (10-42) IU/L ALT < 10 L (10-60) IU/L Alkaline Phosphatase 23 L (42-121) IU/L Total Protein 4.8 L (6.7-8.2) g/dL Albumin 2.9 L (3.2-5.5) g/dL Globulin 1.9 L (2.1-4.2) g/dL Albumin/Globulin Ratio 1.5 (1.0-2.2) Ur Specific Rea (1.002-1.030) Urine HCG, Qual 03/17/19 Range/Units 11:38 WBC (4.8-10.8) x10^3/uL RBC (4.20-5.40) 10^6/uL Hgb (12.0-16.0) g/dL Hct (37.0-47.0) % MCV (81.0-99.0) fL MCH (27.0-31.0) pg MCHC (32.0-36.0) g/dL RDW (12.0-15.0) % Plt Count (130-450) 10^3/uL MPV (7.9-10.8) fL Neut # (Auto) (1.5-6.6) 10^3/uL Lymph # (Auto) (1.5-3.5) 10^3/uL [place] # (Auto) (0.0-1.0) 10^3/uL Eos # (Auto) (0.0-0.7) 10^3/uL Baso # (Auto) (0.0-0.1) 10^3/uL Absolute Nucleated RBC x10^3/uL Nucleated RBC % /100WBC PT (9.9-12.6) secs INR (0.8-1.2) APTT (24.9-33.3) secs Fibrinogen (220-496) mg/dL Sodium (135-145) mmol/L Potassium (3.5-5.0) mmol/L Chloride (101-111) mmol/L Carbon Dioxide (21-32) mmol/L Anion Gap (6-13) BUN (6-20) mg/dL Creatinine (0.4-1.0) mg/dL Estimated GFR (MDRD) (>89) Glucose (70-100) mg/dL Calcium (8.5-10.3) mg/dL Total Bilirubin (0.2-1.0) mg/dL AST (10-42) IU/L ALT (10-60) IU/L Alkaline Phosphatase (42-121) IU/L Total Protein (6.7-8.2) g/dL Albumin (3.2-5.5) g/dL Globulin (2.1-4.2) g/dL Albumin/Globulin Ratio (1.0-2.2) Ur Specific Rea 1.015 (1.002-1.030) Urine HCG, Qual NEGATIVE Assessment/Plan - Problem List (1) Anemia Impression: Rvwd CT images with Dr. Gunter (Radiologist); c/w active bleeding and hemoperitoneum. Proceeding to OR, anesthesia, operative staff alerted and Dr. Julisa zavala, Gen Surg, called to assist. 1st unit PRBCs transfusing, coags returned with elevated INR to 1.3 and fibrinogen borderline low at 221. Cr normal at 0.7. Ordered FFP, additional unit PRBCs, will continue to monitor CBC and coags and resuscitate as needed. Currently maintaining MAP, not tachycardic though increased from baseline in 60s to 80s. UOP 35 ml over last hour, clear yellow. Qualifiers: Anemia type: unspecified type Qualified Code(s): D64.9 - Anemia, unspecified
[2019-03-18] MEDS ORDERED: SODIUM CHLORIDE FLUSH 0.9% 10 ML SYRINGE ONE (00:10)
[2019-03-18] MEDS ORDERED: TRANEXAMIC ACID 1,000 MG in SODIUM CHLORIDE 0.9% 100ML 100 ML IV STA (00:15)
[2019-03-18] MEDS ORDERED: BUPIVACAINE 0.25% PF 30 ML VIAL ONE (00:28)
[2019-03-18] MEDS ORDERED: ONDANSETRON 4 MG/2 ML VIAL IVP ONE (00:54)
[2019-03-18] MEDS ORDERED: ROCURONIUM 50 MG/5 ML VIAL IVP ONE (00:54)
[2019-03-18] MEDS ORDERED: ePHEDrine 50 MG/ML VIAL IVP ONE (00:54)
[2019-03-18] MEDS ORDERED: SODIUM CHLORIDE 0.9% 500 ML IV ONE (00:54)
[2019-03-18] MEDS ORDERED: METOCLOPRAMIDE 10 MG/2 ML VIAL IVP ONE (00:54)
[2019-03-18] MEDS ORDERED: diphenhydrAMINE INJ 50 MG/ML VIAL IVP ONE (00:54)
[2019-03-18] MEDS ORDERED: LACTATED RINGERS 600 ML IV ONE (00:54)
[2019-03-18] MEDS ORDERED: MIDAZOLAM 2 MG/2 ML VIAL IVP ONE (00:54)
[2019-03-18] MEDS ORDERED: PROPOFOL 200 MG/20 ML VIAL IVP ONE (00:54)
[2019-03-18] MEDS ORDERED: LIDOCAINE-MPF 2% 5 ML VIAL IM ONE (00:54)
[2019-03-18] MEDS ORDERED: DEXAMETHASONE 4 MG/ML VIAL IVP ONE (00:54)
[2019-03-18] MEDS ORDERED: fentaNYL 100 MCG/2 ML VIAL IVP ONE ×2 (00:54)
[2019-03-18] MEDS ORDERED: BUPIVACAINE 0.25% PF 30 ML VIAL SUBQ ONE ×2 (01:18)
--- NOTE | 2019-03-18 02:03 | ANESTHESIA ---
Pre-Anesthesia VS, & Labs - Diagnosis post op bleed s/p vaginal hysterectomy - Procedure laparoscopic treatment of post op bleed, possible laparotomy Vital Signs: Temp Pulse Resp BP Pulse Ox 36.6 C 80 16 94/52 L 100 03/17/19 23:31 03/17/19 23:31 12 23:31 03/17/19 23:31 03/17/19 23:31 Height 5 ft 6 in Weight (kg) 46 kg Body Mass Index 16.6 - NPO >8 hours - Is Patient ?: No - Lab Results Current Lab Results: Laboratory Tests 03/17/19 22:14: PT 14.4 H, INR 1.3 H, APTT 27.5, Fibrinogen 221 03/17/19 22:14: Sodium 137, Potassium 4.5, Chloride 106, Carbon Dioxide 25, Anion Gap 6.0, BUN 14, Creatinine 0.7, Estimated GFR (MDRD) 95, Glucose 172 H, Calcium 7.8 L, Total Bilirubin 1.0, AST 16, ALT < 10 L, Alkaline Phosphatase 23 L, Total Protein 4.8 L, Albumin 2.9 L, Globulin 1.9 L, Albumin/Globulin Ratio 1.5 03/17/19 21:36: WBC 15.2 H, RBC 2.16 L, Hgb 6.8 L*, Hct 21.5 L, MCV 99.5 H, MCH 31.5 H, MCHC 31.6 L, RDW 13.7, Plt Count 274, MPV 10.2, Neut # (Auto) 13.6 H, Lymph # (Auto) 0.7 L, [place] # (Auto) 0.7, Eos # (Auto) 0.0, Baso # (Auto) 0.0, Ab solute Nucleated RBC 0.00, Nucleated RBC % 0.0 Fish Bones: 03/17/19 21:36 03/17/19 22:14 Home Medications and Allergies Active Medications Acetaminophen (Tylenol) 1,000 mg PO Q6H [facility] Last Admin: 03/17/19 22:34 Dose: Not Given Docusate Sodium (Colace 100mg Capsule) 100 mg PO BID [facility] Last Admin: 03/17/19 20:41 Dose: 100 mg Hydromorphone HCl (Dilaudid Inj Syringe) 0.5 mg IVP Q2H PRN PRN Reason: PAIN Lactated Ringer's (Lr) 1,000 mls @ 200 mls/hr IV .Q5H EV Last Infusion: 03/18/19 00:30 Dose: 0 mls/hr Ondansetron HCl (Zofran Inj) 4 mg IVP Q6H PRN PRN Reason: Nausea / Vomiting Last Admin: 03/17/19 16:19 Dose: 4 mg Oxycodone HCl (Roxicodone) 10 mg PO Q4HR PRN PRN Reason: PAIN Last Admin: 03/17/19 17:37 Dose: 10 mg Clobetasol 0.05% Oint [Temovate 0.05% Oint] 1 applic TOP 03/03/19 Hydrocodone/Acetaminophen [Hydrocodone-Acetamin 5-325 mg] 1 each PO PRN PRN 03/03/19 Allergies/Adverse Reactions: Allergies Allergy/AdvReac Type Severity Reaction Status Date / Time No Known Drug Allergies Allergy Verified 03/03/19 12:26 Anes History & Medical History - Anesthetic History Anesthesia Complications: reports: No previous complications - Medical History Cardiovascular: reports: Other Pulmonary: reports: None Gastrointestinal: reports: None Urinary: reports: Other Neuro: reports: None Musculoskeletal: reports: None, Fibromyalgia Endocrine/Autoimmune: reports: None Blood Disorders: reports: None Skin: reports: None Smoking Status: Current every day smoker Psychosocial: reports: Anxiety - Surgical History Eyes Ears Nose Throat (EENT): Myringotomy (tubes) Gynecologic: Other Exam Dental: WNL, TMJ Mouth Opening: Greater than 4 Fingerbreadths Neck Mobility: Normal Mallampati classification: II Thyromental Distance: greater than 6 cm Respiratory: Lungs clear Cardiovascular: Regular rate Mental/Cognitive Status: Alert/Oriented X3 Plan Anesthesia Type: General Consent for Procedure(s) Verified and Reviewed: Yes Code Status: Attempt Resuscitation ASA classification: 2-Mild systemic disease Is this case an emergency?: Yes
[2019-03-18] MEDS ORDERED: LACTATED RINGERS 1,000 ML IV ONE ×2 (02:07→03:00)
[2019-03-18] MEDS ORDERED: SODIUM CHLORIDE 0.9% 1,000 ML IV SCH (03:00)
--- NOTE | 2019-03-18 03:06 | OPERATIVE REPORT ---
Operative Report - General Admit Date: 03/17/19 Procedure Date: 03/18/19 Planned Procedure: diagnostic laparoscopy, possible exploratory laparotomy, other indicated procedures Pre-Op Diagnosis: postoperative hemorrhage Procedure Performed: operative laparoscopy with control of hemorrhage Post Op Diagnosis: bleeding pedicle from hysterectomy - Procedure Note Primary Surgeon: [place] Carlton Secondary Surgeon: Dr. Burrell Anesthesia Technique: General ET tube Pathology: none IV Fluids (mL): 1,100 (1100 ml crystalloid, also rec'd 1u PRBCs intraoperatively) Estimated Blood Loss (mL): 1,500 Urine Output (mL): 60 Indications: postoperative bleeding Findings: Abdomen and pelvis filled with >1000 mL blood and clot, evacuated by suction. Right suture line noted to be bleeding, hemostasis secured with cautery and vascular clip applied to descending remnant of right uterine artery. Right ureter seen transperitoneally and noted to vermiculate remote from area of dissection. Surgicel placed over bed after hemostasis assured. Normal liver edge, normal bilateral ovaries. Complications: postoperative bleeding requiring return to OR - Other Other Information/Narrative: After informed consent was assured, the patient was taken to the OR with IV fluids running. Prior to return to the OR she had already received 1u PRBCs, 1u FFP, 1000 mg of TXA and a 2nd unit of PRBCs was continuing to run. Anesthesia was induced and the patient was intubated. The abdomen was prepped and draped in a sterile fashion. 0.25% marcaine was injected at the umbilicus, and a vertical incision was made in the skin. Under direct visualization, a 5 mm trochar was inserted at this site; the abdomen was noted to be filled with blood. 2 cm anterior and medial to the left ASIS marcaine was injected and a skin incision was made allowing placement of a 10 mm trochar. In a similar fashion, another 5 mm trochar was placed on the right. The suction parachute panel joiner was used to remove blood and clot from the abdomen and pelvis, exposed the pedicles from the prior surgery. The left pedicle and the vaginal cuff were intact and hemostatic. The right pedicle was noted to be oozing along the broad ligament with active bleeding from the utero-ovarian remnant and the descending remnant of the uterine artery. The ureter was noted to vermiculate posterior to these vessels, remote from the area of dissection. Vascular clips were applied to the bleeding vessels. Cautery was applied to the oozing dissection bed using the L-hook bipolar cautery as well as the Ligasure. Good hemostasis was achieved. Pneumoperitoneum pressure was reduced to 8 mm Hg with no further bleeding noted. Surgicel was introduced and used to apply pressure to the area of dissection, then left in place. All remaining clot and blood was removed from the pelvis with the suction parachute panel joiner. No ongoing bleeding was noted. The ovaries were seen bilaterally and noted to be normal. The liver edge was visualized and normal. The Kumar Lalito system was used to close the fascia on the 10 mm port site. Air was evacuated from the abdomen. 4-0 monocryl subcuticular stitches were placed in each port site, and the sites were covered with Dermabond skin adhesive. Counts were correct. The patient was awoken and extubated. She was transferred to PACU in a stable condition. During the case she received a 3rd unit of PRBCs.
[2019-03-18 03:12] LABS: BASOPHILS % (AUTO) 0.2 %; HGB - HEMOGLOBIN 9.1 g/dL (12.0-16.0); LYMPHOCYTES # (AUTO) 0.6 10^3/uL (1.5-3.5); MEAN CORPUSCULAR HEMOGLOBIN 29.5 pg (27.0-31.0); MEAN CORPUSCULAR HGB CONC 31.8 g/dL (32.0-36.0); MEAN CORPUSCULAR VOLUME 92.9 fL (81.0-99.0); MEAN PLATELET VOLUME 10.3 fL (7.9-10.8); MONOCYTES # (AUTO) 0.9 10^3/uL (0.0-1.0); MONOCYTES % (AUTO) 7.8 %; NEUTROPHILS # (AUTO) 10.1 10^3/uL (1.5-6.6); NEUTROPHILS % (AUTO) 86.4 %; PLT - PLATELET COUNT 187 10^3/uL (130-450); RED BLOOD COUNT 3.08 10^6/uL (4.20-5.40); RED CELL DISTRIBUTION WIDTH 15.9 % (12.0-15.0); WHITE BLOOD COUNT 11.7 x10^3/uL (4.8-10.8)
[2019-03-18 03:19] LABS: INR 1.3 (0.8-1.2); PT - PROTHROMBIN TIME 14.3 secs (9.9-12.6)
[2019-03-18 03:32] LABS: PARTIAL THROMBOPLASTIN TIME 27.2 secs (24.9-33.3)
[2019-03-18] MEDS ORDERED: SODIUM CHLORIDE 0.9% 1,000 ML IV ONE (03:37)
--- NOTE | 2019-03-18 03:39 | CONSULTATION NOTE ---
Referring Provider Name of Referring Provider:: Dr Estephania Carlton Consult Date: 03/18/19 Chief Complaint - Chief Complaint Chief Complaint: post-op intrabdominal bleed History of Present Illness - Admitted From Admitted From:: [facility] - History Obtained From Records Reviewed: yes History obtained from: OB physician - History of Present Illness HPI Comment/Other: Patient is a 38 y/o female with Hx of pelvic pain and fibromyalgia who presented to the hospital today for a schedule total vaginal hysterectomy. This was done earlier in the day and she was transferred to the medical bed. Later in the day it was noticed that she was having low blood pressures with a SBP as low as 70 's. She was also found to have a hemoglobin of 6.8. CT scan of the abd/pelvis was suggestive of intra-abdominal bleed so she was taken back to the OR for a diagnostic laparoscopy with possible laparotomy. Prior to going to the OR, she received 2 units of PRBC, 1 unit FFP, 1g tranexamic acid and 1L lactated ringer. She received another unit of PRBC in the OR and an estimated 1100ml of Lactated ringer in the OR. Minimally invasive procedure (Laparoscopy) was done and vascular clips were placed at the bleeding site (pedicle) with hemostasis achieved. There was an estimated 1500ml of blood loss. After surgery patient was extubated in the PACU. Upon arrival in the ICU she was not on any sedation or pressor. Though gruggy, she was readily answering questions. Her husban and mother were at bedside. She denied chest pain, dyspnea, fever or chills. She was nauseous and rated her abdominal pain as a 4/10. Repeat CBC after surgery showed a hemoglobin of 9.1. Her SBP fluctuated between 80-90 but her MAP was greater than 60. Over 2 hours s/p surgery, she had 150ml of clear urine output. The hospitalist team was consult to assist with ICU management. History - Past Medical History Cardiovascular: reports: Other (Palpitations) Respiratory: reports: None Neuro: reports: None Endocrine/Autoimmune: reports: None GI: reports: None PHLEBOTOMY SUPPORT TECH: reports: Ovarian cysts, Other (Pelvic pain) : reports: Other HEENT: reports: None Psych: reports: Depression, Anxiety, Other Musculoskeletal: reports: None, Fibromyalgia Derm: reports: None MRSA Hx?: No - Past Surgical History /PHLEBOTOMY SUPPORT TECH: reports: Hysterectomy, Other (breast augmentation) HEENT: reports: Myringotomy (tubes) - Family & Social History Family History Comment/Other: Patient denied any significant family history of medical problems Living arrangement: At home Living Situation: With spouse/s.o. Social History Notes: She smokes 1/2 ppd for 14 years. She denies alcohol or illicit drug use. - POLST Patient has POLST: No POLST Status: Full Code Meds/Allgy - Home Medications Home Medications: Ambulatory Orders Medication Instructions Recorded Confirmed LORazepam [Ativan] 0.5 mg PO Q6H PRN #10 tablet 01/02/18 03/17/19 Clobetasol 0.05% Oint [Temovate 1 applic TOP 03/03/19 0.05% Oint] Hydrocodone/Acetaminophen 1 each PO PRN PRN 03/03/19 03/17/19 [Hydrocodone-Acetamin 5-325 mg] - Allergies Allergies/Adverse Reactions: Allergies Allergy/AdvReac Type Severity Reaction Status Date / Time No Known Drug Allergies Allergy Verified 03/03/19 12:26 Review of Systems - Constitutional Constitutional: denies: Fatigue, Fever - Eyes Eyes: denies: Blurred vision, Vision loss, Dipolpia - Ears, Nose & Throat Ears, Nose & Throat: denies: Vertigo - Cardiovascular Cariovascular: reports: Palpitations. denies: Chest pain, Lightheadedness, Syncope, Exertional dyspnea - Respiratory Respiratory: denies: Cough, Sputum production, Wheezing, SOB at rest, SOB with exertion - Gastrointestinal Gastrointestinal: reports: Abdominal pain, Nausea. denies: Abdominal distenti on, Constipation, Vomiting - Genitourinary Genitourinary: denies: Dysuria, Frequency, Urgency, Hematuria, Incontinence, Flank pain - Musculoskeletal Musculoskeletal: denies: Muscle pain, Back pain - Integumentary Integumentary: denies: Rash, Pruritis, Lesions, Dryness - Neurological Neurological: denies: General weakness, Focal weakness, Headache, Dizziness - Psychiatric Psychiatric: reports: Anxiety. denies: Depression - Endocrine Endocrine: denies: Polyuria, Polydypsia - Hematologic/Lymphatic Hematologic/Lymphatic: reports: Anemia. denies: Bruising Exam - Vital Signs Vital Signs: Vital Signs x48h Temp Pulse Pulse Resp BP BP Pulse Ox 03/18/19 03:30 37 C 71 15 90/56 L 100 03/18/19 03:25 37 C 69 14 87/57 L 100 03/18/19 03:20 36.9 C 70 15 84/57 L 100 03/18/19 03:15 36.9 C 72 14 81/56 L 100 03/18/19 03:10 36.9 C 72 15 87/56 L 100 03/18/19 03:05 36.8 C 70 15 91/58 L 100 03/18/19 03:00 36.8 C 63 15 86/56 L 100 03/18/19 02:55 36.9 C 74 15 91/59 L 100 03/18/19 02:53 36.8 C 76 16 93/56 L 100 03/17/19 23:31 36.6 C 80 16 94/52 L 100 03/17/19 23:20 36.6 C 92 16 90/46 L 03/17/19 23:02 37.1 C 77 15 89/55 L 03/17/19 21:56 37.1 C 91 14 76/38 L 100 - Physical Exam General Appearance: positive: Moderate distress, Lethargic Eyes Bilateral: positive: PERRL, EOMI ENT: positive: Pharynx nml, Dry mucous membranes Neck: positive: Nml inspection, No JVD, Trachea midline Respiratory: positive: Chest non-tender, No respiratory distress, Breath sounds nml. negative: Rhonchi Cardiovascular: positive: Regular rate & rhythm Abdomen: positive: Nml bowel sounds, Tenderness. negative: Guarding, Rebound Back: positive: Nml inspection Skin: positive: Color nml, No rash, Warm, Dry Extremities: positive: Non-tender, Full ROM, Nml appearance Neurologic/Psychiatric: positive: Oriented x3, CN's nml (2-12), Motor nml, Sensation nml, Mood/affect nml Conclusion/Plan - Diagnosis Diagnosis: 1. Hemmorhagic Shock. 2/2Intra-abdominal Bleed - Plan Plan: Patient was taken back to the OR by Dr Carlton Bleeding source was identified, vascular clips place with hemostasis achieved Patient received a total of 3 units PRBC, 1 unit FFP, 1g tranexamic acid and 2/1 L Lactated Ringers prior to and during surgery. 1L normal saline has been ordered. Then hydration will continue with normal saline at 100ml/hr Goal is for a MAP > 65 and SBP >100. Repeat CBC pending for 07:00 am today. Close monitoring of urine out put Zofran for nausea prn. Tylenol, oxycodone and/or dilaudid for different level sof abdominal pain - Lab Results Lab results reviewed: Yes Fish Bones: 03/18/19 03:00 03/17/19 22:14 - EKG Results EKG Interpreted Independently: Yes EKG Findings: Normal Sinus rhythm
[2019-03-18] MEDS: ACETAMINOPHEN 500 MG TABLET PO SCH ×2 (03:57→09:31)
[2019-03-18] MEDS: HYDROmorphone 0.5 MG/0.5 ML SYRINGE IVP PRN ×4 (05:16→14:09)
[2019-03-18 06:07] LABS: VBG PH 7.384 (7.31-7.41)
[2019-03-18 06:08] LABS: BASOPHILS % (AUTO) 0.2 %; HGB - HEMOGLOBIN 7.6 g/dL (12.0-16.0); LYMPHOCYTES # (AUTO) 0.6 10^3/uL (1.5-3.5); LYMPHOCYTES % (AUTO) 6.7 %; MEAN CORPUSCULAR HEMOGLOBIN 30.3 pg (27.0-31.0); MEAN CORPUSCULAR HGB CONC 33.3 g/dL (32.0-36.0); MEAN CORPUSCULAR VOLUME 90.8 fL (81.0-99.0); MEAN PLATELET VOLUME 10.5 fL (7.9-10.8); MONOCYTES # (AUTO) 0.7 10^3/uL (0.0-1.0); MONOCYTES % (AUTO) 7.7 %; NEUTROPHILS # (AUTO) 8.1 10^3/uL (1.5-6.6); NEUTROPHILS % (AUTO) 84.7 %; PLT - PLATELET COUNT 144 10^3/uL (130-450); RED BLOOD COUNT 2.51 10^6/uL (4.20-5.40); WHITE BLOOD COUNT 9.6 x10^3/uL (4.8-10.8)
[2019-03-18 06:15] LABS: CALCIUM 7.2 mg/dL (8.5-10.3); CREATININE 0.6 mg/dL (0.4-1.0)
[2019-03-18 06:34] LABS: INR 1.3 (0.8-1.2)
[2019-03-18 06:40] LABS: MAGNESIUM 1.4 mg/dL (1.7-2.8); PHOSPHORUS 3.5 mg/dL (2.5-4.6)
[2019-03-18 06:42] LABS: PARTIAL THROMBOPLASTIN TIME 28.3 secs (24.9-33.3)
--- NOTE | 2019-03-18 06:49 | PROVIDER PROGRESS NOTE ---
Subjective - Prog Note Date Prog Note Date: 03/18/19 Prog Note Time: 06:45 - Subjective Pt reports feeling: Improved (Pt reports diffuse abdominal pain, 8/10, now improved to 4/10 after dose of IV dilaudid. Mild nausea, but no emesis. Feels fatigued but no longer lightheaded, no CP, no SOB. Not yet ambulating. Voiding to [place]. No flatus yet.) Objective - Vital Signs/Intake & Output Vital Signs: Vital Signs x48h Temp Pulse Pulse Pulse Resp BP BP 03/18/19 05:57 70 12 81/45 L 03/18/19 05:30 72 11 L 84/46 L 03/18/19 05:00 84 17 87/51 L 03/18/19 04:39 67 15 94/47 L 03/18/19 03:40 98.4 F 72 19 92/59 L 03/18/19 03:35 98.4 F 72 15 91/56 L 03/18/19 03:30 98.6 F 71 15 90/56 L 03/18/19 03:25 98.6 F 69 14 87/57 L 03/18/19 03:20 98.4 F 70 15 84/57 L 03/18/19 03:15 98.4 F 72 14 81/56 L 03/18/19 03:10 98.4 F 72 15 87/56 L 03/18/19 03:05 98.2 F 70 15 91/58 L 03/18/19 03:00 98.2 F 63 15 86/56 L 03/18/19 02:55 98.4 F 74 15 91/59 L 03/18/19 02:53 98.2 F 76 16 93/56 L 03/17/19 23:31 97.9 F 80 16 94/52 L 03/17/19 23:20 97.9 F 92 16 90/46 L 03/17/19 23:02 98.8 F 77 15 89/55 L Pulse Ox 03/18/19 05:57 99 03/18/19 05:30 100 03/18/19 05:00 97 03/18/19 04:39 100 03/18/19 03:40 100 03/18/19 03:35 100 03/18/19 03:30 100 03/18/19 03:25 03/18/19 03:20 03/18/19 03:15 03/18/19 03:10 03/18/19 03:05 100 03/18/19 03:00 03/18/19 02:55 03/18/19 02:53 03/17/19 23:31 03/17/19 23:20 03/17/19 23:02 Intake & Output: Intake & Output 03/15/19 03/16/19 03/17/19 03/18/19 23:59 23:59 23:59 23:59 Intake Total 2796.666 451.666 Output Total 735 89 Balance 2061.666 362.666 - Objective General Appearance: positive: No acute distress, Other (pale) Abdomen: positive: No distention, Other (soft, no rebound or guarding. Very mild appropriate postoperative tenderness. Incisions c/d/i with skin adhesive in place) Extremities: positive: Non-tender (SCDs in place) Neurologic/Psychiatric: positive: Oriented x3 - Lab Results Fish Bones: 03/18/19 05:57 03/18/19 05:57 Other Labs: Lab Results x24hrs 03/18/19 03/18/19 03/18/19 Range/Units 06:21 05:57 05:57 WBC (4.8-10.8) x10^3/uL RBC (4.20-5.40) 10^6/uL Hgb (12.0-16.0) g/dL Hct (37.0-47.0) % MCV (81.0-99.0) fL MCH (27.0-31.0) pg MCHC (32.0-36.0) g/dL RDW (12.0-15.0) % Plt Count (130-450) 10^3/uL MPV (7.9-10.8) fL Neut # (Auto) (1.5-6.6) 10^3/uL Lymph # (Auto) (1.5-3.5) 10^3/uL Wilkin # (Auto) (0.0-1.0) 10^3/uL Eos # (Auto) (0.0-0.7) 10^3/uL Baso # (Auto) (0.0-0.1) 10^3/uL Absolute Nucleated RBC x10^3/uL Nucleated RBC % /100WBC PT 15.0 H (9.9-12.6) secs INR 1.3 H (0.8-1.2) APTT 28.3 (24.9-33.3) secs Fibrinogen (220-496) mg/dL VBG pH 7.384 (7.31-7.41) Ionized Calcium 1.02 L (1.15-1.33) mmol/L Sodium (135-145) mmol/L Potassium (3.5-5.0) mmol/L Chloride (101-111) mmol/L Carbon Dioxide (21-32) mmol/L Anion Gap (6-13) BUN (6-20) mg/dL Creatinine (0.4-1.0) mg/dL Estimated GFR (MDRD) (>89) Glucose (70-100) mg/dL Calcium (8.5-10.3) mg/dL Phosphorus 3.5 (2.5-4.6) mg/dL Magnesium 1.4 L (1.7-2.8) mg/dL Total Bilirubin (0.2-1.0) mg/dL AST (10-42) IU/L ALT (10-60) IU/L Alkaline Phosphatase (42-121) IU/L Total Protein (6.7-8.2) g/dL Albumin (3.2-5.5) g/dL Globulin (2.1-4.2) g/dL Albumin/Globulin Ratio (1.0-2.2) Ur Specific [place] (1.002-1.030) Urine HCG, Qual Nasal Screen MRSA (PCR) (NEGATIVE) 03/18/19 03/18/19 03/18/19 Range/Units 05:57 05:57 03:40 WBC 9.6 (4.8-10.8) x10^3/uL RBC 2.51 L (4.20-5.40) 10^6/uL Hgb 7.6 L (12.0-16.0) g/dL Hct 22.8 L (37.0-47.0) % MCV 90.8 (81.0-99.0) fL MCH 30.3 (27.0-31.0) pg MCHC 33.3 (32.0-36.0) g/dL RDW 16.0 H (12.0-15.0) % Plt Count 144 (130-450) 10^3/uL MPV 10.5 (7.9-10.8) fL Neut # (Auto) 8.1 H (1.5-6.6) 10^3/uL Lymph # (Auto) 0.6 L (1.5-3.5) 10^3/uL Wilkin # (Auto) 0.7 (0.0-1.0) 10^3/uL Eos # (Auto) 0.0 (0.0-0.7) 10^3/uL Baso # (Auto) 0.0 (0.0-0.1) 10^3/uL Absolute Nucleated RBC 0.00 x10^3/uL Nucleated RBC % 0.0 /100WBC PT (9.9-12.6) secs INR (0.8-1.2) APTT (24.9-33.3) secs Fibrinogen (220-496) mg/dL VBG pH (7.31-7.41) Ionized Calcium (1.15-1.33) mmol/L Sodium 135 (135-145) mmol/L Potassium 4.1 (3.5-5.0) mmol/L Chloride 107 (101-111) mmol/L Carbon Dioxide 24 (21-32) mmol/L Anion Gap 4.0 L (6-13) BUN 13 (6-20) mg/dL Creatinine 0.6 (0.4-1.0) mg/dL Estimated GFR (MDRD) 113 (>89) Glucose 142 H (70-100) mg/dL Calcium 7.2 L (8.5-10.3) mg/dL Phosphorus (2.5-4.6) mg/dL Magnesium (1.7-2.8) mg/dL Total Bilirubin (0.2-1.0) mg/dL AST (10-42) IU/L ALT (10-60) IU/L Alkaline Phosphatase (42-121) IU/L Total Protein (6.7-8.2) g/dL Albumin (3.2-5.5) g/dL Globulin (2.1-4.2) g/dL Albumin/Globulin Ratio (1.0-2.2) Ur Specific [place] (1.002-1.030) Urine HCG, Qual Nasal Screen MRSA (PCR) NEGATIVE (NEGATIVE) 03/18/19 03/18/19 03/17/19 Range/Units 03:00 03:00 22:14 WBC 11.7 H (4.8-10.8) x10^3/uL RBC 3.08 L (4.20-5.40) 10^6/uL Hgb 9.1 L (12.0-16.0) g/dL Hct 28.6 L (37.0-47.0) % MCV 92.9 (81.0-99.0) fL MCH 29.5 (27.0-31.0) pg MCHC 31.8 L (32.0-36.0) g/dL RDW 15.9 H (12.0-15.0) % Plt Count 187 (130-450) 10^3/uL MPV 10.3 (7.9-10.8) fL Neut # (Auto) 10.1 H (1.5-6.6) 10^3/uL Lymph # (Auto) 0.6 L (1.5-3.5) 10^3/uL Wilkin # (Auto) 0.9 (0.0-1.0) 10^3/uL Eos # (Auto) 0.0 (0.0-0.7) 10^3/uL Baso # (Auto) 0.0 (0.0-0.1) 10^3/uL Absolute Nucleated RBC 0.00 x10^3/uL Nucleated RBC % 0.0 /100WBC PT 14.3 H 14.4 H (9.9-12.6) secs INR 1.3 H 1.3 H (0.8-1.2) APTT 27.2 27.5 (24.9-33.3) secs Fibrinogen 227 221 (220-496) mg/dL VBG pH (7.31-7.41) Ionized Calcium (1.15-1.33) mmol/L Sodium (135-145) mmol/L Potassium (3.5-5.0) mmol/L Chloride (101-111) mmol/L Carbon Dioxide (21-32) mmol/L Anion Gap (6-13) BUN (6-20) mg/dL Creatinine (0.4-1.0) mg/dL Estimated GFR (MDRD) (>89) Glucose (70-100) mg/dL Calcium (8.5-10.3) mg/dL Phosphorus (2.5-4.6) mg/dL Magnesium (1.7-2.8) mg/dL Total Bilirubin (0.2-1.0) mg/dL AST (10-42) IU/L ALT (10-60) IU/L Alkaline Phosphatase (42-121) IU/L Total Protein (6.7-8.2) g/dL Albumin (3.2-5.5) g/dL Globulin (2.1-4.2) g/dL Albumin/Globulin Ratio (1.0-2.2) Ur Specific [place] (1.002-1.030) Urine HCG, Qual Nasal Screen MRSA (PCR) (NEGATIVE) 03/17/19 03/17/19 03/17/19 Range/Units 22:14 21:36 11:38 WBC 15.2 H (4.8-10.8) x10^3/uL RBC 2.16 L (4.20-5.40) 10^6/uL Hgb 6.8 L* (12.0-16.0) g/dL Hct 21.5 L (37.0-47.0) % MCV 99.5 H (81.0-99.0) fL MCH 31.5 H (27.0-31.0) pg MCHC 31.6 L (32.0-36.0) g/dL RDW 13.7 (12.0-15.0) % Plt Count 274 (130-450) 10^3/uL MPV 10.2 (7.9-10.8) fL Neut # (Auto) 13.6 H (1.5-6.6) 10^3/uL Lymph # (Auto) 0.7 L (1.5-3.5) 10^3/uL Wilkin # (Auto) 0.7 (0.0-1.0) 10^3/uL Eos # (Auto) 0.0 (0.0-0.7) 10^3/uL Baso # (Auto) 0.0 (0.0-0.1) 10^3/uL Absolute Nucleated RBC 0.00 x10^3/uL Nucleated RBC % 0.0 /100WBC PT (9.9-12.6) secs INR (0.8-1.2) APTT (24.9-33.3) secs Fibrinogen (220-496) mg/dL VBG pH (7.31-7.41) Ionized Calcium (1.15-1.33) mmol/L Sodium 137 (135-145) mmol/L Potassium 4.5 (3.5-5.0) mmol/L Chloride 106 (101-111) mmol/L Carbon Dioxide 25 (21-32) mmol/L Anion Gap 6.0 (6-13) BUN 14 (6-20) mg/dL Creatinine 0.7 (0.4-1.0) mg/dL Estimated GFR (MDRD) 95 (>89) Glucose 172 H (70-100) mg/dL Calcium 7.8 L (8.5-10.3) mg/dL Phosphorus (2.5-4.6) mg/dL Magnesium (1.7-2.8) mg/dL Total Bilirubin 1.0 (0.2-1.0) mg/dL AST 16 (10-42) IU/L ALT < 10 L (10-60) IU/L Alkaline Phosphatase 23 L (42-121) IU/L Total Protein 4.8 L (6.7-8.2) g/dL Albumin 2.9 L (3.2-5.5) g/dL Globulin 1.9 L (2.1-4.2) g/dL Albumin/Globulin Ratio 1.5 (1.0-2.2) Ur Specific [place] 1.015 (1.002-1.030) Urine HCG, Qual NEGATIVE Nasal Screen MRSA (PCR) (NEGATIVE) Assessment/Plan - Problem List (1) Anemia Impression: 38 yo woman POD#1 s/p TVH/cysto, POD#0 from return to OR for dx l/s and control of postoperative hemorrhage. Has rec'd 3u PRBCs, 1u FFP last night. Hct this AM 22. VS notable for continued hypotension but overall maintaining MAP >60. UOP 0.6 ml/kg/h since 2200 last night including 150 mL urine emptied in PACU, reported but not documented in flow sheet, but remaining low at approx 25 ml/h. No e/o ongoing bleeding, abdomen benign, suspect Hct business banking representative of equilibration. Plan for additional 1u PRBCs this AM, rpt CBC and coags this AM 4h after transfusion. Continue to monitor closely in ICU; appreciate ongoing support and assistance of hospitalist in patient's care. Maintain NPO except sips/chips until UOP and BP improved. High risk for ileus and will monitor for same. SCDs for VTE prophylaxis. Continue to hold NSAIDs, tylenol, roxicodone and dilaudid for pain. Anticipate step down to med-surg arevalo this PM if UOP and BPs improved. Dispo when passing flatus, pain well controlled, voiding spontaneously. Qualifiers: Anemia type: unspecified type Qualified Code(s): D64.9 - Anemia, unspecified
[2019-03-18] MEDS: SODIUM CHLORIDE 0.9% 1,000 ML IV SCH ×3 (07:32→14:15)
[2019-03-18] MEDS: oxyCODONE 5 MG TABLET PO PRN (07:57)
[2019-03-18] MEDS ORDERED: CALCIUM GLUCONATE 1,000 MG in SODIUM CHLORIDE 0.9% 50 ML IV SCH (08:25)
[2019-03-18] MEDS ORDERED: SODIUM CHLORIDE FLUSH 0.9% 10 ML SYRINGE IVP SCH (09:00)
--- NOTE | 2019-03-18 09:02 | PHARMACY PROGRESS NOTE ---
- Best Possible Medication History Admit Date and Time: 03/17/19 1116 Processed by: Nursing Medication History completed: Yes As the person ultimately responsible for medication therapy, providers are able to order a medication from an existing home medication list in [facility] via the "Reconcile Routine" prior to Confirmation of that medication by academic support specialist. Such practice is discouraged except when the physician, in their clinical judgment, deems that a medical need exists for a medication without regard to previous use.
[2019-03-18] MEDS: DOCUSATE SODIUM 100 MG CAPSULE PO SCH (09:31)
[2019-03-18] MEDS ORDERED: MAGNESIUM SULFATE 2 GRAM 2 GM/50 ML BAG IV SCH (10:00)
[2019-03-18] MEDS: SODIUM CHLORIDE FLUSH 0.9% 10 ML SYRINGE IVP PRN ×3 (10:03→14:11)
[2019-03-18] MEDS ORDERED: NICOTINE 14 MG PATCH TOP SCH (11:00)
[2019-03-18 11:46] LABS: HGB - HEMOGLOBIN 7.9 g/dL (12.0-16.0); MEAN CORPUSCULAR HEMOGLOBIN 30.6 pg (27.0-31.0); MEAN CORPUSCULAR HGB CONC 33.3 g/dL (32.0-36.0); MEAN CORPUSCULAR VOLUME 91.9 fL (81.0-99.0); MEAN PLATELET VOLUME 10.5 fL (7.9-10.8); RED BLOOD COUNT 2.58 10^6/uL (4.20-5.40); RED CELL DISTRIBUTION WIDTH 16.2 % (12.0-15.0); WHITE BLOOD COUNT 7.7 x10^3/uL (4.8-10.8)
[2019-03-18 11:52] LABS: INR 1.3 (0.8-1.2); PT - PROTHROMBIN TIME 14.6 secs (9.9-12.6)
[2019-03-18 12:05] LABS: PARTIAL THROMBOPLASTIN TIME 28.5 secs (24.9-33.3)
[2019-03-18] MEDS ORDERED: DOPamine 800 MG/500 ML 800 MG/500 ML BAG IV SCH (13:30)
--- NOTE | 2019-03-18 14:08 | DISCHARGE SUMMARY ---
"Discharge Summary Admit Date: 03/17/19 Discharge Date: 03/18/19 Discharging Provider: Chico Carlton Code Status: Attempt Resuscitation Condition at Discharge: Critical Discharge Disposition: 02 Transfer Acute Care Hosp Discharge Facility Name: [facility] - DIAGNOSES Admission Diagnoses: chronic pelvic pain Discharge Diagnoses with Status of Each Condition: 1. chronic pelvic pain, s/p TVH 2. postoperative hemorrhage, requiring return to the OR and transfer to higher level facility for ongoing evaluation and treatment - HPI History of Present Illness: 38yo woman with chronic pelvic pain admitted for planned TVH/cystoscopy [id number]. Surgery uncomplicated, EBL 100mL. See hospital course for further details. - CONSULTS | PROCEDURES Consultations: Hospitalist service, General surgery Procedures: 1. TVH/cystoscopy 2. Operative laparoscopy with vascular clip applied to right uterine artery remnant - HOSPITAL COURSE Hospital Course: On the evening after surgery, noted to have decreasing UOP, decreasing BP; continued to have normal HR, no change in mentation, soft abdomen. CBC revealed Hct 38-->[address] scan revealed evidence of intra-abdominal bleeding; on return from CT increasing abdominal distention. Rec'd 2u PRBCs, 1u FFP, 1 gm TXA while preparing for return to OR. Underwent operative laparoscopy with Dr. Carlton (Industrial Machine Operator) assisted by Dr. Dillon (General Surgery) with evacuation of 1500 mL hemoperitoneum, active bleeding noted from uterine artery pedicle on pt's right, secured with vascular clip. Rec'd 1 additional unit PRBCs intraoperatively. Second surgery completed approximately 0300 06DEC. Immediate postoperative Hct 28. 4 hours later, Hct down to 22, continued low-borderline UOP 23-45 ml/hour, continued low BPs with MAPs mostly low 60s. Rec'd additional 1u PRBCs but no significant improvement in BP or UOP, subsequent Hct 23. Abdomen remained soft and nondistended, moderately tender, no evidence by exam of intraperitoneal bleeding; some ecchymosis left flank but none on right. At this point decision made to initiate transfer to [facility] for ICU and possible interventional radiology given high level of suspicion for retroperitoneal bleeding on the right side. Throughout course of evaluation for postoperative bleeding noted increased INR to 1.3, aptt stable at 28.5, fibrinogen slightly downtrending from 220-->209. Plts downtrending 240-->130. With recommendation and assistance from hospitalist service, initiated dopamine to support blood pressure while awaiting further resuscitation with additional FFP and cryoprecipitate. Pt accepted for transfer to [facility] ICU by Dr. Anderson; [facility] gynecology, general surgery and interventional radiology services also alerted. Transferred by [facility] to [facility]. - ALLERGIES Allergies/Adverse Reactions: Allergies Allergy/AdvReac Type Severity Reaction Status Date / Time No Known Drug Allergies Allergy Verified 03/03/19 12:26 - MEDICATIONS Home Medications: Ambulatory Orders Medication Instructions Recorded Confirmed LORazepam [Ativan] 0.5 mg PO Q6H PRN #10 tablet 01/02/18 03/17/19 Clobetasol 0.05% Oint [Temovate 1 applic TOP 03/03/19 0.05% Oint] Hydrocodone/Acetaminophen 1 each PO PRN PRN 03/03/19 03/17/19 [Hydrocodone-Acetamin 5-325 mg] Home Medications Other | Comments: 1. Lexapro 20 mg qhs 2. vicodin 1 tab daily for fibromyalgia pain 3. ativan 0.5 mg prn anxiety - PHYSICAL EXAM AT DISCHARGE General Appearance: positive: Other (pale, anxious. Oriented x 3. ) Respiratory: positive: Breath sounds nml Cardiovascular: positive: Regular rate & rhythm Abdomen: positive: Other (port sites c/d/i, skin adhesive in place. Soft, diffuse mild tenderness without rebound, nondistended. Some ecchymosis on left flank lateral to her LLQ port site.) Extremities: positive: Pedal edema (trace, bilateral) Neurologic/Psychiatric: positive: Oriented x3 - LABS Result Diagrams: 03/18/19 11:37 03/18/19 05:57 - QUALITY (Female Hip Fx Only) Was patient sent home on osteoporosis medication?: No - FOLLOW UP Follow Up: With Dr. Carlton at [facility] on discharge from [facility] - TIME SPENT Time Spent in Discharge (Minutes): 90"
[2019-03-18] MEDS ORDERED: ESCITALOPRAM 10 MG TABLET PO ONE (14:19)
[2019-03-18 14:22] VITALS: BP 114/68
[2019-03-18] MEDS ORDERED: ESCITALOPRAM 10 MG TABLET PO SCH (14:45)
== END 2019-03-18 14:35 | disposition short-term general hospital (02) | DRG 742 ==
LOC: MS3 11:16 → ICU 03-18 03:41
PROVIDERS: ADMIT Obstetrics & Gynecology; ATTEND Obstetrics & Gynecology
PROC: 30233L1 Transfusion of Nonautologous Fresh Plasma into Peripheral Vein, Percutaneous Approach (ICD-10-PCS; 2019-03-17)
PROC: 30233N1 Transfusion of Nonautologous Red Blood Cells into Peripheral Vein, Percutaneous Approach (ICD-10-PCS; 2019-03-17)
PROC: 0UT90ZZ Resection of Uterus, Open Approach (ICD-10-PCS; principal; 2019-03-17 12:30)
PROC: 0W3G4ZZ Control Bleeding in Peritoneal Cavity, Percutaneous Endoscopic Approach (ICD-10-PCS; 2019-03-18)
DX: N94.6 Dysmenorrhea, unspecified (principal); T81.19XA Other postprocedural shock, initial encounter; N99.820 Postprocedural hemorrhage of a genitourinary system organ or structure following a genitourinary system procedure; D62 Acute posthemorrhagic anemia; D25.1 Intramural leiomyoma of uterus; N99.89 Other postprocedural complications and disorders of genitourinary system; R34 Anuria and oliguria; F41.8 Other specified anxiety disorders; L30.9 Dermatitis, unspecified; M79.7 Fibromyalgia; F17.210 Nicotine dependence, cigarettes, uncomplicated; N83.201 Unspecified ovarian cyst, right side; Y83.6 Removal of other organ (partial) (total) as the cause of abnormal reaction of the patient, or of later complication, without mention of misadventure at the time of the procedure; Y92.234 Operating room of hospital as the place of occurrence of the external cause
CPT/HCPCS: 36415; 74177; 80048; 80053; 81025; 82330; 83735; 84100; 85025; 85027; 85384; 85610; 85730; 86850; 86900; 86901; 86920; 87150; 93005

== ENCOUNTER 2019-04-06 18:10 | Emergency (ER) | payer OTHER ==
[2019-04-06 18:43] LABS: BASOPHILS % (AUTO) 0.6 %; EOSINOPHILS # (AUTO) 0.2 10^3/uL (0.0-0.7); EOSINOPHILS % (AUTO) 3.5 %; HGB - HEMOGLOBIN 12.6 g/dL (12.0-16.0); LYMPHOCYTES # (AUTO) 1.5 10^3/uL (1.5-3.5); LYMPHOCYTES % (AUTO) 30.2 %; MEAN CORPUSCULAR HEMOGLOBIN 30.1 pg (27.0-31.0); MEAN CORPUSCULAR HGB CONC 31.3 g/dL (32.0-36.0); MEAN CORPUSCULAR VOLUME 96.4 fL (81.0-99.0); MONOCYTES # (AUTO) 0.4 10^3/uL (0.0-1.0); MONOCYTES % (AUTO) 8.4 %; NEUTROPHILS # (AUTO) 2.8 10^3/uL (1.5-6.6); NEUTROPHILS % (AUTO) 57.1 %; PLT - PLATELET COUNT 392 10^3/uL (130-450); RED BLOOD COUNT 4.18 10^6/uL (4.20-5.40); RED CELL DISTRIBUTION WIDTH 14.9 % (12.0-15.0); WHITE BLOOD COUNT 4.9 x10^3/uL (4.8-10.8)
--- NOTE | 2019-04-06 18:46 | ED Physician Documentation ---
History of Present Illness - Stated complaint Stated Complaint: F - Chief complaint Chief Complaint: General - History obtained from History obtained from: Patient, Family () - History of Present Illness Timing: Today (She had a laparoscopic-assisted vaginal hysterectomy on March 17 complicated by blood loss, she was transfused and symptomatic and where she had angioembolization. Pain was slowly getting better, but today she had some spotting and then light bleeding. Also a little bit more pain but she has been increasing her activity. No weakness or lightheadedness.) - Additonal information Additional information: She has been on pelvic rest without sexual activity since the surgery. Review of Systems Ten Systems: 10 systems reviewed and negative Constitutional: denies: Fever, Chills GI: reports: Abdominal Pain. denies: Nausea, Vomiting, Constipation, Diarrhea : denies: Dysuria, Frequency PD PAST MEDICAL HISTORY - Past Medical History Cardiovascular: Other (Palpitations) Respiratory: None Neuro: None Endocrine/Autoimmune: None GI: None HEAD OF CYTOGENETICS: Ovarian cysts, Other (Pelvic pain) : Other HEENT: None Psych: Depression, Anxiety, Other Musculoskeletal: None, Fibromyalgia Derm: None - Past Surgical History Past Surgical History: Yes /HEAD OF CYTOGENETICS: Hysterectomy, Other (breast augmentation) HEENT: Myringotomy (tubes) - Present Medications Home Medications: Ambulatory Orders Medication Instructions Recorded Confirmed LORazepam [Ativan] 0.5 mg PO Q6H PRN #10 tablet 01/02/18 03/17/19 Clobetasol 0.05% Oint [Temovate 1 applic TOP 03/03/19 0.05% Oint] Hydrocodone/Acetaminophen 1 each PO PRN PRN 03/03/19 03/17/19 [Hydrocodone-Acetamin 5-325 mg] - Allergies Allergies/Adverse Reactions: Allergies Allergy/AdvReac Type Severity Reaction Status Date / Time No Known Drug Allergies Allergy Verified 04/06/19 18:13 - Social History Does the pt smoke?: Yes Smoking Status: Current every day smoker Does the pt drink ETOH?: No Does the pt have substance abuse?: No - Immunizations Immunizations are current?: Yes Immunizations: TDAP >10years/unknown - POLST Patient has POLST: No POLST Status: Full Code PD ED PE NORMAL - Vitals Vital signs reviewed: Yes - General General: Alert and oriented X 3, No acute distress - Abdomen Abdomen: Soft, Non tender - Female Female : Painter Airbrush present (Gloria Tech), Other (Suture line seems intact, no blood in the vault.) - Neuro Neuro: Alert and oriented X 3, Normal speech - Psych Psych: Normal mood, Normal affect Results - Vitals Vitals: Vital Signs - 24 hr 04/06/19 18:14 Temperature 36.6 C Heart Rate 72 Respiratory 16 Rate Blood Pressure 110/66 O2 Saturation 100 Oxygen O2 Source Room air - Labs Labs: Laboratory Tests 04/06/19 04/06/19 04/06/19 18:37 18:37 18:37 WBC 4.9 RBC 4.18 L Hgb 12.6 Hct 40.3 MCV 96.4 MCH 30.1 MCHC 31.3 L RDW 14.9 Plt Count 392 MPV 10.0 Neut # (Auto) 2.8 Lymph # (Auto) 1.5 Prentiss # (Auto) 0.4 Eos # (Auto) 0.2 Baso # (Auto) 0.0 Absolute Nucleated RBC 0.00 Nucleated RBC % 0.0 PT 13.5 H INR 1.2 Sodium 138 Potassium 3.8 Chloride 102 Carbon Dioxide 28 Anion Gap 8.0 BUN 16 Creatinine 0.6 Estimated GFR (MDRD) 113 Glucose 99 Calcium 9.3 PD MEDICAL DECISION MAKING - ED course ED course: Spoke with her marine drafter, Dr Carlton [phone] No specific treatment necessary now given reassuring H&H and apparently intact suture line, she would like to see her tomorrow. Departure - Departure Disposition: 01 Home, Self Care Clinical Impression: S/P vaginal hysterectomy Post-operative haemorrhage Qualifiers: Surgical complication system/body Area: genitourinary Procedure type: genitourinary Qualified Code(s): N99.820 - Postprocedural hemorrhage of a genitourinary system organ or structure following a genitourinary system procedure Condition: Good Record reviewed to determine appropriate education?: Yes Comments: I spoke with your marine drafter, Dr. Carlton, she would like to see you tomorrow at noon in her office for follow-up. You can let her know that her your her hemoglobin was 12.6, hematocrit 40.3. Return if worse.
[2019-04-06 18:48] LABS: INR 1.2 (0.8-1.2); PT - PROTHROMBIN TIME 13.5 secs (9.9-12.6)
[2019-04-06 18:51] LABS: CALCIUM 9.3 mg/dL (8.5-10.3); CREATININE 0.6 mg/dL (0.4-1.0)
[2019-04-06 20:21] VITALS: BP 101/66
== END 2019-04-06 20:21 | disposition home or self-care (01) ==
LOC: ED 18:10
DX: N99.820 Postprocedural hemorrhage of a genitourinary system organ or structure following a genitourinary system procedure (principal); Z90.710 Acquired absence of both cervix and uterus; F17.200 Nicotine dependence, unspecified, uncomplicated
CPT/HCPCS: 36415; 80048; 85025; 85610; 86850; 86900; 86901; 99283

== ENCOUNTER 2019-10-04 14:51 | Outpatient (CLI) | payer OTHER | END 2019-10-04 14:52 | disposition critical access hospital (66) | LOC: EMS 14:51 | PROVIDERS: ATTEND Surgery | DX: S39.92XA Unspecified injury of lower back, initial encounter (principal); R51 Headache; R11.0 Nausea; W10.8XXA Fall (on) (from) other stairs and steps, initial encounter; Y93.01 Activity, walking, marching and hiking; Y92.008 Other place in unspecified non-institutional (private) residence as the place of occurrence of the external cause | CPT/HCPCS: A0425; A0429 ==

== ENCOUNTER 2019-10-04 15:05 | Emergency (ER) | payer OTHER ==
[2019-10-04] MEDS ORDERED: HYDROmorphone 1 MG/ML CARPUJECT IM STA (15:52)
--- NOTE | 2019-10-04 15:56 | ED Physician Documentation ---
History of Present Illness - Stated complaint Stated Complaint: FALL/3 STAIRS - Chief complaint Chief Complaint: General - History obtained from History obtained from: Patient - History of Present Illness Timing: Prior to arrival Pain level max: 10 Pain level now: 6 - Additonal information Additional information: 39-year-old female presents to the emergency department with chief complaint of tailbone pain. She was descending the stairs and slipped and fell down 3's steps striking her tailbone each time. She landed onto a concrete floor. Patient did not hit her head and remembers the fall. However the pain was so severe that once her neighbor arrived and could care for her kids she reports that she passed out. She is unsure for how long she lost consciousness but then woke up on the couch in her house. Patient reports that her neighbor carried her into the house and she does not remember that event. No previous history of syncope. Denies the possibility of . She has had a total abdominal hysterectomy. EMS was summoned. Patient states that when she woke up she was diaphoretic and had tingling in both of her arms. She also had a severe headache. However the headache is gone away as well as the symptoms of tingling in her arms. Review of Systems Constitutional: denies: Fever, Chills Eyes: denies: Loss of vision Ears: denies: Loss of hearing, Tinnitus/ringing Cardiac: denies: Chest pain / pressure, Palpitations GI: denies: Abdominal Pain, Abdominal Swelling : denies: Dysuria Skin: denies: Rash, Lesions Musculoskeletal: reports: Back pain (coccyx pain) Neurologic: reports: Syncope, Headache. 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, Other : Other HEENT: None Psych: Depression, Anxiety, Other Musculoskeletal: None, Fibromyalgia Derm: None - Past Surgical History Past Surgical History: Yes /WORKERS COMPENSATION COORDINATOR: Hysterectomy, Other HEENT: Myringotomy (tubes) - Present Medications Home Medications: Ambulatory Orders Medication Instructions Recorded Confirmed LORazepam [Ativan] 0.5 mg PO Q6H PRN #10 tablet 01/02/18 03/17/19 Clobetasol 0.05% Oint [Temovate 1 applic TOP 03/03/19 0.05% Oint] Hydrocodone/Acetaminophen 1 each PO PRN PRN 03/03/19 03/17/19 [Hydrocodone-Acetamin 5-325 mg] - Allergies Allergies/Adverse Reactions: Allergies Allergy/AdvReac Type Severity Reaction Status Date / Time No Known Drug Allergies Allergy Verified 04/06/19 18:13 - Social History Does the pt smoke?: Yes Smoking Status: Current every day smoker Does the pt drink ETOH?: No Does the pt have substance abuse?: No - Immunizations Immunizations are current?: Yes Immunizations: TDAP >10years/unknown - POLST Patient has POLST: No POLST Status: Full Code PD ED PE NORMAL - General General: Alert and oriented X 3, No acute distress, Well developed/nourished - HEENT HEENT: Atraumatic, PERRL, EOMI - Neck Neck: No adenopathy - Cardiac Cardiac: RRR, No murmur - Respiratory Respiratory: No respiratory distress - Abdomen Abdomen: Normal bowel sounds - Back Back: No CVA TTP, No spinal TTP, Other (Focal tenderness on the lower coccyx. No ecchymosis no crepitus or instability noted.) - Derm Derm: Normal color, Warm and dry - Extremities Extremities: No deformity, No tenderness to palpate, No edema - Neuro Neuro: Alert and oriented X 3, medical laboratory scientist 2-12 intact, No motor deficit, No sensory deficit, Normal speech Eye Opening: Spontaneous Motor: Obeys Commands Verbal: Oriented GCS Score: 15 - Psych Psych: Normal mood Results - Vitals Vitals: Vital Signs - 24 hr 10/04/19 15:07 Temperature 37 C Heart Rate 88 Respiratory 16 Rate Blood Pressure 114/70 O2 Saturation 100 Oxygen O2 Source Room air - EKG (time done) 1600 Rate: Rate (enter#) (70) Rhythm: NSR [place]: Normal Intervals: Normal [place] QRS: Normal Ischemia: Normal ST segments Computer interpretation: Agree with computer (NSR withotu ischemic findings) - Labs Labs: Laboratory Tests 10/04/19 10/04/19 16:07 16:07 WBC 9.1 RBC 4.09 L Hgb 13.1 Hct 39.9 MCV 97.6 MCH 32.0 H MCHC 32.8 RDW 12.8 Plt Count 305 MPV 9.7 Neut # (Auto) 7.3 H Lymph # (Auto) 1.1 L [place] # (Auto) 0.5 Eos # (Auto) 0.1 Baso # (Auto) 0.0 Absolute Nucleated RBC 0.00 Nucleated RBC % 0.0 Sodium 138 Potassium 3.7 Chloride 102 Carbon Dioxide 27 Anion Gap 9.0 BUN 13 Creatinine 0.6 Estimated GFR (MDRD) 112 Glucose 85 Calcium 8.9 Total Bilirubin 0.5 AST 18 ALT 12 Alkaline Phosphatase 45 Total Protein 7.1 Albumin 4.3 Globulin 2.8 Albumin/Globulin Ratio 1.5 Lipase 41 - Rads (name of study) coccyx Radiology: Final report received (No acute fracture dislocation) PD MEDICAL DECISION MAKING - ED course Complexity details: reviewed results, re-evaluated patient, d/w patient, d/w family ED course: 39-year-old female presents to the emergency department with chief complaint of coccyx pain after falling down 3 stairs at home this afternoon. After the fall she did have a syncopal episode to which she attributes the pain - - X-ray of sacrum and coccyx is without fracture or acute dislocation. Patient has an antalgic gait but is able to support her weight fully. Pain was improved after Dilaudid in the emergency department. She reported a syncopal event which I feel is most likely vasovagal. Her EKG is nonischemic her labs are without any acute abnormality. - Patient has a history of fibromyalgia and is currently taking Vicodin. She has a pain contract with her primary care provider. I recommend close follow-up with her primary care provider. Discussed emergent return precautions. Departure - Departure Disposition: 01 Home, Self Care Clinical Impression: Coccyx pain, Fall (on) (from) other stairs and steps, initial encounter Syncope Qualifiers: Syncope type: vasovagal syncope Qualified Code(s): R55 - Syncope and collapse Condition: Stable Instructions: Coccygodynia Follow-Up: SHAWN COPE DO [Primary Care Provider] - Comments: Your EKG was normal. Your CBC and blood chemistry was normal. The x-ray of your sacrum and coccyx did not show anything broken. If all has most likely resulted in a pretty severe contusion of your tailbone. I would recommend icing it for the next 24 to 48 hours. I would sit on a donut or pillow until the pain improves. Please discuss your long-term pain management with your primary care provider. Return to the emergency department if you have any numbness or tingling between your legs or down your legs. Return to the emergency department for bloody stools
[2019-10-04 16:14] LABS: BASOPHILS % (AUTO) 0.3 %; EOSINOPHILS # (AUTO) 0.1 10^3/uL (0.0-0.7); EOSINOPHILS % (AUTO) 1.2 %; HGB - HEMOGLOBIN 13.1 g/dL (12.0-16.0); LYMPHOCYTES # (AUTO) 1.1 10^3/uL (1.5-3.5); LYMPHOCYTES % (AUTO) 11.8 %; MEAN CORPUSCULAR HGB CONC 32.8 g/dL (32.0-36.0); MEAN CORPUSCULAR VOLUME 97.6 fL (81.0-99.0); MEAN PLATELET VOLUME 9.7 fL (7.9-10.8); MONOCYTES # (AUTO) 0.5 10^3/uL (0.0-1.0); MONOCYTES % (AUTO) 5.3 %; NEUTROPHILS # (AUTO) 7.3 10^3/uL (1.5-6.6); NEUTROPHILS % (AUTO) 80.8 %; PLT - PLATELET COUNT 305 10^3/uL (130-450); RED BLOOD COUNT 4.09 10^6/uL (4.20-5.40); RED CELL DISTRIBUTION WIDTH 12.8 % (12.0-15.0); WHITE BLOOD COUNT 9.1 x10^3/uL (4.8-10.8)
[2019-10-04 16:27] LABS: ALBUMIN 4.3 g/dL (3.2-5.5); ALBUMIN/GLOBULIN RATIO 1.5 (1.0-2.2); BILIRUBIN,TOTAL 0.5 mg/dL (0.2-1.0); CALCIUM 8.9 mg/dL (8.5-10.3); CREATININE 0.6 mg/dL (0.4-1.0); TOTAL PROTEIN 7.1 g/dL (6.7-8.2)
--- NOTE | 2019-10-04 16:49 | XRAY Report ---
PROCEDURE: Sacrum/Coccyx INDICATIONS: fell on 3 steps TECHNIQUE: 3 views of the sacrum and coccyx acquired. COMPARISON: CT of abdomen and pelvis dated 03/17/2019 FINDINGS: Bones: No fractures or dislocations. No suspicious bony lesions. Soft tissues: Visualized bowel gas pattern is normal. No suspicious soft tissue densities. IMPRESSION: No acute sacral or coccygeal fracture is seen. Reviewed by: Jorge Luis Galindo MD on 10/04/2019 4:48 PM PDT Approved by: Jorge Luis Galindo MD on 10/04/2019 4:48 PM PDT Station ID: [id number]
[2019-10-04 17:12] VITALS: BP 120/69
== END 2019-10-04 17:12 | disposition home or self-care (01) ==
LOC: EDUNIT# → ED 15:05
DX: S39.92XA Unspecified injury of lower back, initial encounter (principal); W10.9XXA Fall (on) (from) unspecified stairs and steps, initial encounter; R55 Syncope and collapse; M79.7 Fibromyalgia; F17.200 Nicotine dependence, unspecified, uncomplicated
CPT/HCPCS: 36415; 72220; 80053; 83690; 85025; 93005; 96372; 99284; J1170

== ENCOUNTER 2020-02-03 08:40 | Emergency (ER) | payer OTHER ==
--- NOTE | 2020-02-03 08:57 | ED Physician Documentation ---
PD HPI DYSPNEA - Stated complaint Stated Complaint: SOA - History obtained from History obtained from: Patient - History of Present Illness Timing - onset: Today (for cough and wheezing.), How many days ago (for sinus congestion and drainage of purulent material) Timing - onset during: Light activity Timing - duration: Hours (5 hours of wheezing and dyspnea.) Timing - details: Gradual onset, Still present Inciting event(s): URI (sinus and nasal congestion for 2 days and now with cough and wheezing) Improved by: Inhaler/neb (had old albuterol inhaler and used puffs that helped but not well.) Worsened by: Coughing Associated symptoms: Cough, Wheezing. No: Fever, Bilateral edema Similar symptoms before: Has not had sx before Review of Systems Constitutional: reports: Chills, Myalgias. denies: Fever Nose: reports: Rhinorrhea / runny nose, Congestion, Sinus pressure / pain Throat: denies: Sore throat Respiratory: reports: Dyspnea, Cough, Wheezing GI: denies: Vomiting, Diarrhea Skin: denies: Rash, Lesions PD PAST MEDICAL HISTORY - Past Medical History Cardiovascular: Other Respiratory: Asthma (episodically with allergies or URIs. 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, Other : Other HEENT: None Psych: Depression, Anxiety, Other Musculoskeletal: None, Fibromyalgia Derm: None - Past Surgical History Past Surgical History: Yes /SENIOR TREASURY CONSULTANT: Hysterectomy, Other HEENT: Myringotomy (tubes) - Present Medications Home Medications: Ambulatory Orders Medication Instructions Recorded Confirmed LORazepam [Ativan] 0.5 mg PO Q6H PRN #10 tablet 01/02/18 03/17/19 Clobetasol 0.05% Oint [Temovate 1 applic TOP 03/03/19 0.05% Oint] Hydrocodone/Acetaminophen 1 each PO PRN PRN 03/03/19 03/17/19 [Hydrocodone-Acetamin 5-325 mg] Albuterol Sulfate [Albuterol 2 puffs IH QID #1 hfa.aer.ad 02/03/20 Sulfate Hfa] Benzonatate [Tessalon Perle] 100 mg PO TID PRN #30 capsule 02/03/20 Cephalexin [Keflex] 500 mg PO TID #20 capsule 02/03/20 dexAMETHasone [Decadron] 4 mg PO DAILY #7 tablet 10/23/20 - Allergies Allergies/Adverse Reactions: Allergies Allergy/AdvReac Type Severity Reaction Status Date / Time No Known Drug Allergies Allergy Verified 02/03/20 08:58 - Social History Does the pt smoke?: Yes Smoking Status: Current every day smoker Does the pt drink ETOH?: No Does the pt have substance abuse?: No - Immunizations Immunizations are current?: Yes Immunizations: TDAP >10years/unknown - POLST Patient has POLST: No POLST Status: Full Code PD ED PE NORMAL - Vitals Vital signs reviewed: Yes - General General: Alert and oriented X 3, Well developed/nourished, Other (appears uncomfortable with prolonged expiratory phase and some conversational dyspena. ) - HEENT HEENT: Pharynx benign - Neck Neck: Supple, no meningeal sign, No adenopathy - Cardiac Cardiac: RRR (mild tachycardia), No murmur - Respiratory Respiratory: No: Clear bilaterally (no coarse sounds but has diffuse holoexpiratory wheezing. ) - Abdomen Abdomen: Soft, Non tender - Derm Derm: Normal color, Warm and dry - Extremities Extremities: No edema Results - Vitals Vitals: Vital Signs - 24 hr 02/03/20 02/03/20 02/03/20 08:53 09:15 09:31 Temperature 36.4 C L Heart Rate 104 H 90 92 Respiratory 20 20 20 Rate Blood Pressure 111/74 116/87 H O2 Saturation 97 100 02/03/20 02/03/20 02/03/20 10:20 10:30 11:09 Temperature 37.0 C Heart Rate 132 H 90 90 Respiratory 18 20 16 Rate Blood Pressure 105/74 102/86 H O2 Saturation 97 97 Oxygen O2 Source Room air - Rads (name of study) chest xray Radiology: Prelim report reviewed (no ifniltrates), See rad report PD MEDICAL DECISION MAKING - ED course Complexity details: reviewed results (chest xray without infiltrates. ), re- evaluated patient (improved better with MDI 5 puffs. and then repeated dose an hour later and felt improved enough to go. ), considered differential (URI with wheezing. ), d/w patient Departure - Departure Disposition: 01 Home, Self Care Clinical Impression: Wheezing Upper respiratory infection Qualifiers: URI type: unspecified URI Qualified Code(s): J06.9 - Acute upper respiratory infection, unspecified Dyspnea Qualifiers: Dyspnea type: shortness of breath Qualified Code(s): R06.02 - Shortness of breath Condition: Stable Record reviewed to determine appropriate education?: Yes Instructions: ED Upper Resp Infec Abx Tx Follow-Up: SHAWN COPE DO [Primary Care Provider] - Prescriptions: Albuterol Sulfate [Albuterol Sulfate Hfa] 2 puffs IH QID #1 hfa.aer.ad dexAMETHasone [Decadron] 4 mg PO DAILY #7 tablet Cephalexin [Keflex] 500 mg PO TID #20 capsule Benzonatate [Tessalon Perle] 100 mg PO TID PRN #30 capsule PRN Reason: Cough Comments: . Use the albuterol inhaler 2 to 4 puffs 4 times a day for the next several days to a week and then as needed. Decadron steroid daily for a week for inflammation of the airway. Benzonatate as needed for cough. You can continue your Afrin spray periodically. Cephalexin antibiotic 3 times a day for a week for possible bacterial cause of this. Your chest x-ray is clear without any signs of pneumonia at this time. I would anticipate improvement over the next 2 to 3 days and resolving over several days. Recheck if worsening. Your Covid test will result in 1 to 2 days. You can access the results of that through the patient portal for [facility]. Discharge Date/Time: 02/03/20 11:15
[2020-02-03] MEDS ORDERED: ALBUTEROL 1 PUFF INH STA ×2 (09:18→10:17)
[2020-02-03] MEDS ORDERED: cephALEXin 250 MG CAPSULE PO STA (09:18)
[2020-02-03] MEDS ORDERED: DEXAMETHASONE 10 MG/ML VIAL PO STA (09:18)
[2020-02-03] MEDS ORDERED: CHERRY SYRUP 10 ML UDC PO ONE (09:18)
[2020-02-03] MEDS ORDERED: BENZONATATE 100 MG CAPSULE PO STA (09:18)
--- NOTE | 2020-02-03 09:53 | XRAY Report ---
PROCEDURE: Chest 1 View X-Ray INDICATIONS: dyspnea, wheezing, cough TECHNIQUE: One view of the chest was acquired. COMPARISON: 10/17/2014 FINDINGS: Surgical changes and devices: None. Lungs and pleura: No pleural effusions or pneumothorax. Lungs demonstrate no acute consolidation. Th ere is a small nodular opacity projecting over the right apex, measuring approximately 6 mm. Mediastinum: Mediastinal contours appear normal. Heart size is normal. Bones and chest wall: No suspicious bony lesions. Overlying soft tissues appear unremarkable. IMPRESSION: 1. No definite evidence of pneumonia. 2. Small nodular opacity projecting over the right apex suspicious for a pulmonary nodule. Consider a repeat PA and lateral study or if indicated further evaluation with CT. Reviewed by: Juan Siegel MD on 02/03/2020 9:52 AM PDT Approved by: Juan Siegel MD on 02/03/2020 9:52 AM PDT Station ID: [id number]
[2020-02-03 11:10] VITALS: BP 102/86
== END 2020-02-03 11:15 | disposition home or self-care (01) ==
LOC: ED 08:40
DX: J06.9 Acute upper respiratory infection, unspecified (principal); R06.02 Shortness of breath; F17.200 Nicotine dependence, unspecified, uncomplicated; Z20.828 Contact with and (suspected) exposure to other viral communicable diseases
CPT/HCPCS: 71045; 87635; 94640; 94664; 99284; A9270

== ENCOUNTER 2021-04-26 13:52 | Emergency (ER) | payer OTHER ==
[2021-04-26] MEDS ORDERED: HYDROmorphone 1 MG/ML CARPUJECT IM STA ×2 (15:22→16:29)
[2021-04-26 15:31] VITALS: BP 115/70
[2021-04-26 15:32] LABS: BILIRUBIN,URINE NEGATIVE (NEGATIVE); GLUCOSE, URINE (UA) NEGATIVE (NEGATIVE); KETONES,URINE (UA) NEGATIVE (NEGATIVE); LEUKOCYTE ESTERASE, URINE NEGATIVE (NEGATIVE); NITRITE,URINE NEGATIVE (NEGATIVE); OCCULT BLOOD,URINE TRACE-INTA (NEGATIVE); PROTEIN,URINE NEGATIVE (NEGATIVE); UROBILINOGEN,URINE 0.2 (NORMAL) E.U./dL (NORMAL)
[2021-04-26 15:37] LABS: CLARITY,URINE CLEAR (CLEAR); HCG UR QUAL NEGATIVE
--- NOTE | 2021-04-26 15:37 | ED Physician Documentation ---
History of Present Illness - Stated complaint Stated Complaint: CHILLS/BACK PX/BODY ACHES - Chief complaint Chief Complaint: Back Pain - Additonal information Additional information: 40-year-old female presents emergency department for evaluation of reported low back pain. States she has had it for 2 days. She is having abdominal cramping and states she has to push to urinate. She is also having subjective fevers chills and headache. She takes Vicodin for her history of fibromyalgia but says it has not touched this back pain. There is no saddle anesthesia. She is not yet vaccinated for COVID-19 that she does not trust the vaccine. Denies sick contacts. She reports a history of agoraphobia and is rocking in the bed. Appears quite anxious and upset PD PAST MEDICAL HISTORY - Past Medical History Cardiovascular: Other Respiratory: Asthma (episodically with allergies or URIs. 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: Hysterectomy, Other HEENT: Myringotomy (tubes) - Present Medications Home Medications: Ambulatory Orders Medication Instructions Recorded Confirmed LORazepam [Ativan] 0.5 mg PO Q6H PRN #10 tablet 01/02/18 03/17/19 Clobetasol 0.05% Oint [Temovate 1 applic TOP 03/03/19 0.05% Oint] Hydrocodone/Acetaminophen 1 each PO PRN PRN 03/03/19 03/17/19 [Hydrocodone-Acetamin 5-325 mg] Albuterol Sulfate [Albuterol 2 puffs IH QID #1 hfa.aer.ad 02/03/20 Sulfate Hfa] Benzonatate [Tessalon Perle] 100 mg PO TID PRN #30 capsule 02/03/20 cephALEXin [Keflex] 500 mg PO TID #20 capsule 02/03/20 dexAMETHasone [Decadron] 4 mg PO DAILY #7 tablet 02/03/20 - Allergies Allergies/Adverse Reactions: Allergies Allergy/AdvReac Type Severity Reaction Status Date / Time No Known Drug Allergies Allergy Verified 04/26/21 14:02 - Social History Does the pt smoke?: Yes Smoking Status: Current every day smoker Does the pt drink ETOH?: No Does the pt have substance abuse?: No - Immunizations Immunizations are current?: Yes Immunizations: TDAP >10years/unknown - POLST Patient has POLST: No POLST Status: Full Code PD ED PE EXPANDED - General General: Alert, Other (Anxious, crying rocking back and forth) - Cardiac Cardiac: Regular Rate, Radial strong equal, Femoral strong equal, Cap refill < 2 sec. No: Murmur Present - Respiratory Respiratory: Clear to ausultation fredrick. No: Distress, Labored - Abdomen Abdomen: Normal Bowel sounds, Other (Unable to elicit any abdominal tenderness with light or deep palpation. No CVA tenderness.). No: Tender to palpation, Rebound, Guarding - Back Back: Soft tissue tenderness (Mild bilateral lower paraspinous tenderness. Full range of motion of the lower lumbar spine. Normal gait. Motor strength five of five bilateral lower extremities. 2+ patellar reflexes bilaterally.). No: Vertebral tenderness - Extremities Extremities: Normal. No: Deformity, Tenderness - Neuro Neuro: Alert and Oriented X 3, CNII-XII intact - GCS Eye Opening: Spontaneous Motor: Obeys Commands Verbal: Oriented Total: 15 Results - Vitals Vitals: Vital Signs - 24 hr 04/26/21 04/26/21 13:57 15:30 Temperature 37.3 C Heart Rate 111 H 86 Respiratory 20 16 Rate Blood Pressure 106/76 115/70 O2 Saturation 100 100 Oxygen O2 Source Room air - Labs Labs: Laboratory Tests 04/26/21 04/26/21 04/26/21 14:35 15:35 15:35 WBC 5.9 RBC 4.12 L Hgb 13.1 Hct 38.7 MCV 93.9 MCH 31.8 H MCHC 33.9 RDW 12.4 Plt Count 249 MPV 10.0 Neut # (Auto) 5.2 Lymph # (Auto) 0.2 L [place] # (Auto) 0.5 Eos # (Auto) 0.0 Baso # (Auto) 0.0 Absolute Nucleated RBC 0.00 Nucleated RBC % 0.0 Sodium 133 L Potassium 3.7 Chloride 99 L Carbon Dioxide 22 Anion Gap 12.0 BUN 11 Creatinine 0.5 Estimated GFR (MDRD) 138 Glucose 121 H Calcium 9.4 Total Bilirubin 0.3 AST 19 ALT 11 Alkaline Phosphatase 52 Total Protein 7.8 Albumin 4.4 Globulin 3.4 Albumin/Globulin Ratio 1.3 Lipase 31 Urine Color YELLOW Urine Clarity CLEAR Urine pH 7.0 Ur Specific [place] 1.015 Urine Protein NEGATIVE Urine Glucose (UA) NEGATIVE Urine Ketones NEGATIVE Urine Occult Blood TRACE-INTA Urine Nitrite NEGATIVE Urine Bilirubin NEGATIVE Urine Urobilinogen 0.2 (NORMAL) Ur Leukocyte Esterase NEGATIVE Ur Microscopic Review NOT INDICATED Urine Culture Comments NOT INDICATED Urine HCG, Qual NEGATIVE - Rads (name of study) CXR Radiology: Final report received (no acute cardiopulmonary process) PD MEDICAL DECISION MAKING - ED course Complexity details: reviewed results, re-evaluated patient, considered differential, d/w patient ED course: This is a 40-year-old female that has a history of fibromyalgia controlled with Vicodin as well as a history of anxiety for which she takes Lexapro and occasionally Ativan presents to the emergency department with generalized myalgias, headache congestion and low back pain. She reported abdominal cramping. Though mildly tachycardic the rest of her vital signs were without worrisome findings. Screening labs showed no leukocytosis. Electrolytes without worrisome findings. No infection in her urine. Clinically I was unable to elicit any abdominal or CVA tenderness. She is not yet vaccinated for COVID-19 and a COVID screen is pending. We discussed that the constellation of symptoms including headache, myalgias and generalized body pain is more consistent with a viral etiology likely exacerbating her fibromyalgia. There was no midline lower spinous tenderness elicited and her neuro lower neurological exam and back exam was otherwise reassuring. Patient was given 1 mg of Dilaudid here in the ER with some relief in her symptoms. We discussed that in the absence of findings of infection in the urine or the ability to elicit abdominal tenderness we would defer CT imaging at this time. She is encouraged to go home continue her regular medications. If her symptoms worsen, she develops fevers, has any fainting episodes difficulty breathing she is to return immediately to the ER for second evaluation. Departure - Departure Disposition: 01 Home, Self Care Clinical Impression: Low back pain Qualifiers: Chronicity: acute Back pain laterality: bilateral Sciatica presence: without sciatica Qualified Code(s): M54.50 - Low back pain, unspecified Condition: Stable Comments: Ilda I hope that you are feeling better soon. Your screening labs, urine and chest x-ray are all without worrisome findings. There is no pneumonia, or infection in your urine. As we discussed at the bedside the constellation of your symptoms, headaches body aches low back pain are likely secondary to a virus exacerbating your fibromyalgia. We do have a COVID-19 test pending on you. You will be notified only if it is positive. It is okay to continue to take your regular fibromyalgia medicines. If at any point you find that your symptoms are worsening, you have uncontrolled fevers or vomiting, you have numbness or tingling in your lower legs or in your genital area then you are to return immediately to the ER for a second evaluation.
[2021-04-26 15:40] LABS: BASOPHILS % (AUTO) 0.2 %; EOSINOPHILS % (AUTO) 0.2 %; HCT - HEMATOCRIT 38.7 % (37.0-47.0); HGB - HEMOGLOBIN 13.1 g/dL (12.0-16.0); LYMPHOCYTES # (AUTO) 0.2 10^3/uL (1.5-3.5); MEAN CORPUSCULAR HEMOGLOBIN 31.8 pg (27.0-31.0); MEAN CORPUSCULAR HGB CONC 33.9 g/dL (32.0-36.0); MEAN CORPUSCULAR VOLUME 93.9 fL (81.0-99.0); MONOCYTES # (AUTO) 0.5 10^3/uL (0.0-1.0); MONOCYTES % (AUTO) 7.6 %; NEUTROPHILS # (AUTO) 5.2 10^3/uL (1.5-6.6); NEUTROPHILS % (AUTO) 87.8 %; PLT - PLATELET COUNT 249 10^3/uL (130-450); RED BLOOD COUNT 4.12 10^6/uL (4.20-5.40); RED CELL DISTRIBUTION WIDTH 12.4 % (12.0-15.0); WHITE BLOOD COUNT 5.9 x10^3/uL (4.8-10.8)
--- NOTE | 2021-04-26 15:48 | XRAY Report ---
PROCEDURE: Chest 1 View X-Ray INDICATIONS: chills, back pain TECHNIQUE: One view of the chest was acquired. COMPARISON: Chest x-ray 02/03/2020 FINDINGS: Surgical changes and devices: None. Lungs and pleura: No pleural effusions or pneumothorax. Lungs are clear. Mediastinum: Mediastinal contours appear normal. Heart size is normal. Bones and chest wall: No suspicious bony lesions. Overlying soft tissues appear unremarkable. IMPRESSION: No acute pulmonary process. Reviewed by: Angie Bunch MD on 04/26/2021 3:47 PM PST Approved by: Angie Bunch MD on 04/26/2021 3:47 PM PST Station ID: [id number]
[2021-04-26 15:52] LABS: ALBUMIN 4.4 g/dL (3.2-5.5); ALBUMIN/GLOBULIN RATIO 1.3 (1.0-2.2); BILIRUBIN,TOTAL 0.3 mg/dL (0.2-1.0); CALCIUM 9.4 mg/dL (8.5-10.3); CREATININE 0.5 mg/dL (0.4-1.0); POTASSIUM 3.7 mmol/L (3.5-5.0); TOTAL PROTEIN 7.8 g/dL (6.7-8.2)
== END 2021-04-26 16:40 | disposition home or self-care (01) ==
LOC: ED 13:52
DX: M54.50 Low back pain, unspecified (principal); M79.7 Fibromyalgia; F17.200 Nicotine dependence, unspecified, uncomplicated; Z20.822 Contact with and (suspected) exposure to COVID-19
CPT/HCPCS: 36415; 71045; 80053; 81003; 81025; 83690; 85025; 87635; 96372; 99284; J1170; 81001; 87086

== ENCOUNTER 2021-04-28 08:42 | Emergency (ER) | payer OTHER ==
[2021-04-28] MEDS ORDERED: KETOROLAC 30 MG/ML VIAL IVP STA (08:56)
[2021-04-28 09:26] LABS: BILIRUBIN,URINE NEGATIVE (NEGATIVE); GLUCOSE, URINE (UA) NEGATIVE (NEGATIVE); KETONES,URINE (UA) NEGATIVE (NEGATIVE); LEUKOCYTE ESTERASE, URINE NEGATIVE (NEGATIVE); NITRITE,URINE NEGATIVE (NEGATIVE); OCCULT BLOOD,URINE SMALL (NEGATIVE); PROTEIN,URINE NEGATIVE (NEGATIVE); UROBILINOGEN,URINE 0.2 (NORMAL) E.U./dL (NORMAL)
[2021-04-28 09:29] LABS: CLARITY,URINE CLEAR (CLEAR)
[2021-04-28] MEDS ORDERED: ONDANSETRON 4 MG/2 ML VIAL IVP STA (09:46)
[2021-04-28] MEDS ORDERED: HYDROmorphone 1 MG/ML CARPUJECT IVP STA ×2 (09:46→11:42)
--- NOTE | 2021-04-28 09:50 | ED Physician Documentation ---
History of Present Illness - Stated complaint Stated Complaint: LOW BACK PX - Chief complaint Chief Complaint: Back Pain - History obtained from History obtained from: Patient - Additonal information Additional information: Patient is brought to the emergency department by her for chief complaint of ongoing low back pain. The patient states she has had diarrhea for the last couple of weeks and has on and off had chills and myalgias. She denies any measured fevers. Patient was nauseated overnight and this morning. She almost vomited but not quite. The patient denies any blood in her stool. No gross blood in her urine. She does complain of some vaginal pressure before needing to urinate. The patient was just seen here 2 days ago for the same symptoms and had work-up including labs, urinalysis, and chest x-ray, all of which were unremarkable. The patient was treated symptomatically with Dilaudid in the emergency department which did help her symptoms. She was sent home to t chetna her normal Lexapro and Vicodin for her anxiety and chronic fibromyalgia related pain. However, the patient states that her back pain escalated again this morning and she just feels as though there is something else wrong. The patient does have children at home and states that they have had similar viral symptoms, but that the symptoms were very short lived with her kids and have lasted much longer with her. No other complaints at this time. The patient states she is not on any new medications or new doses. She does not have any personal or family history of kidney stones. She has had a hysterectomy but still has her ovaries. No other complaints at this time Review of Systems Ten Systems: 10 systems reviewed and negative Constitutional: reports: Reviewed and negative Eyes: reports: Reviewed and negative Ears: reports: Reviewed and negative Nose: reports: Reviewed and negative Throat: reports: Reviewed and negative Cardiac: reports: Reviewed and negative Respiratory: reports: Reviewed and negative GI: reports: Abdominal Pain, Nausea. denies: Vomiting : reports: Reviewed and negative Skin: reports: Reviewed and negative Musculoskeletal: reports: Reviewed and negative Neurologic: reports: Reviewed and negative Psychiatric: reports: Reviewed and negative Endocrine: reports: Reviewed and negative Immunocompromised: reports: Reviewed and negative PD PAST MEDICAL HISTORY - Past Medical History Past Medical History: Yes Cardiovascular: Other Respiratory: Asthma Neuro: None Endocrine/Autoimmune: None GI: None [employer]IVER: Ovarian cysts, Other : Other HEENT: None Psych: Depression, Anxiety, Other Musculoskeletal: None, Fibromyalgia Derm: None - Past Surgical History Past Surgical History: Yes /[employer]: Hysterectomy, Other HEENT: Myringotomy (tubes) - Present Medications Home Medications: Ambulatory Orders Medication Instructions Recorded Confirmed LORazepam [Ativan] 0.5 mg PO Q6H PRN #10 tablet 01/02/18 04/28/21 Clobetasol 0.05% Oint [Temovate 1 applic TOP DAILY 03/03/19 04/28/21 0.05% Oint] Hydrocodone/Acetaminophen 1 each PO PRN PRN 03/03/19 04/28/21 [Hydrocodone-Acetamin 5-325 mg] Escitalopram Oxalate [Lexapro] 20 mg PO DAILY 04/28/21 04/28/21 HYDROcod/ACETAM 5/325 [[place] 5/325] 1 - 2 tablet PO Q4HR PRN #14 tablet 04/28/21 predniSONE [Deltasone] 60 mg PO DAILY 5 Days #15 tablet 04/28/21 - Allergies Allergies/Adverse Reactions: Allergies Allergy/AdvReac Type Severity Reaction Status Date / Time No Known Drug Allergies Allergy Verified 04/28/21 08:50 - Social History Does the pt smoke?: Yes Smoking Status: Current every day smoker Does the pt drink ETOH?: No Does the pt have substance abuse?: No - Immunizations Immunizations are current?: Yes Immunizations: TDAP >10years/unknown - POLST Patient has POLST: No POLST Status: Full Code PD ED PE NORMAL - Vitals Vital signs reviewed: Yes - General General: Alert and oriented X 3, No acute distress, Well developed/nourished - HEENT HEENT: Atraumatic, PERRL, EOMI, Moist mucous membranes - Cardiac Cardiac: RRR, No murmur - Respiratory Respiratory: No respiratory distress, Clear bilaterally - Abdomen Abdomen: Soft, Non tender, Non distended - Back Back: No CVA TTP - Derm Derm: Normal color, Warm and dry, No rash - Extremities Extremities: No deformity, No edema - Neuro Neuro: Alert and oriented X 3, 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, Normal speech - Psych Psych: Normal mood, Normal affect Results - Vitals Vitals: Vital Signs - 24 hr 04/28/21 04/28/21 04/28/21 08:50 10:29 12:13 Temperature 36.6 C Heart Rate 84 62 75 Respiratory 20 14 20 Rate Blood Pressure 113/76 109/77 121/74 O2 Saturation 100 100 99 Oxygen O2 Source Room air - Labs Labs: Laboratory Tests 04/28/21 04/28/21 04/28/21 08:50 09:15 09:15 WBC 2.8 L RBC 4.51 Hgb 14.0 Hct 43.1 MCV 95.6 MCH 31.0 MCHC 32.5 RDW 12.7 Plt Count 214 MPV 10.6 Neut # (Auto) 1.6 Lymph # (Auto) 0.8 L [place] # (Auto) 0.3 Eos # (Auto) 0.0 Baso # (Auto) 0.0 Absolute Nucleated RBC 0.00 Nucleated RBC % 0.0 Manual Slide Review Indicated WBC Morphology NORMAL APPEARANCE Platelet Estimate NORMAL (130-450,000) Platelet Morphology NORMAL APPEARANCE RBC Morph Micro Appear NORMAL APPEARANCE Sodium 138 Potassium 3.6 Chloride 102 Carbon Dioxide 25 Anion Gap 11.0 BUN 14 Creatinine 0.6 Estimated GFR (MDRD) 112 Glucose 98 Calcium 9.0 Total Bilirubin 0.2 AST 19 ALT 15 Alkaline Phosphatase 49 Total Protein 7.9 Albumin 4.4 Globulin 3.5 Albumin/Globulin Ratio 1.3 Lipase 35 Urine Color YELLOW Urine Clarity CLEAR Urine pH 6.0 Ur Specific [place] 1.020 Urine Protein NEGATIVE Urine Glucose (UA) NEGATIVE Urine Ketones NEGATIVE Urine Occult Blood SMALL H Urine Nitrite NEGATIVE Urine Bilirubin NEGATIVE Urine Urobilinogen 0.2 (NORMAL) Ur Leukocyte Esterase NEGATIVE Urine RBC 0-5 Urine WBC 4-5 Ur Squamous Epith Cells MANY Squamous H Urine Bacteria Few Ur Microscopic Review INDICATED Urine Culture Comments NOT INDICATED - Rads (name of study) CT abd/pelvis Radiology: Final report received, EMP read indepedently, See rad report (neg) PD MEDICAL DECISION MAKING - ED course Complexity details: reviewed results, re-evaluated patient, considered differential, d/w patient ED course: The patient was treated symptomatically with IV Decadron, Dilaudid, Toradol, and Zofran. She was worked up with labs, repeat urinalysis, which showed a small amount of blood in the urine, and CT scan of the abdomen and pelvis. The entire work-up was unremarkable, other than a mildly low white count. The pt showed no signs of sepsis. The pt was frustrated at the lack of answers, and I did spend a long time speaking with her about this. We have discussed that if she can bring a stool sample to her PCP, this may be helpful in sorting out her irais rrhea. AFter this, the next step would be colonoscopy. As far as her back pain, the sx are fairly acute, and without worrisome symptoms accompanying. The pt has not had a distinct or major traumatic event, and I suspect the pain will subside on its own as pt's likely viral illness subsides. However, we have discussed the possibility of outpatient MRI with the pt's PCP if sx continue. The pt does have fibromyalgia, and is already on narcotic pain medication at baseline. I will increase this temporarily and add a course of steroids. We have also discussed symptoms which should prompt return to the ED. Departure - Departure Disposition: 01 Home, Self Care Clinical Impression: Viral syndrome Back pain Qualifiers: Back pain location: low back pain Chronicity: acute Back pain laterality: bi lateral Sciatica presence: without sciatica Qualified Code(s): M54.50 - Low back pain, unspecified Diarrhea Qualifiers: Diarrhea type: unspecified type Qualified Code(s): R19.7 - Diarrhea, unspecified Condition: Stable Instructions: ED Diarrhea Viral, ED Diet Vomiting Diarrhea, ED Neck Back Pain General, ED Viral Syndrome Prescriptions: HYDROcod/ACETAM 5/325 [[place] 5/325] 1 - 2 tablet PO Q4HR PRN #14 tablet PRN Reason: Pain predniSONE [Deltasone] 60 mg PO DAILY 5 Days #15 tablet Comments: Your labs look good overall. Your white blood cell count was mildly decreased, which is a nonspecific finding at this point. Your urinalysis showed a trace amount of microscopic blood today, but no infection, and your CT scan was negative for any abnormal or concerning findings. At this point in time, most likely cause of your symptoms is a viral syndrome. However, regarding your diarrhea, as we have discussed, it the next step in evaluation would be to do a stool study panel with a stool sample. If this does not reveal any further information, then a colonoscopy would be the next step. As far as your back pain, this is a fairly acute development and extensive testing has not revealed a specific or concerning cause. The next step in evaluation would likely be an MRI, which her primary care physician can order for you if she feels appropriate. At this point in time, you do not have any evidence of spinal infection or neurologic compromise, and so emergent MRI is not indicated at this point. You may take up to 2 Vicodin tablets every 4 hours if needed for pain. We have also started you on a steroid course to help with some of the inflammation that may be causing your pain. Please continue your plans to follow-up with your primary care physician on Thursday. Your prescriptions have been electronically transmitted to [facility] pharmacy in [place]. Discharge Date/Time: 04/28/21 12:17
[2021-04-28 09:54] LABS: BASOPHILS % (AUTO) 0.4 %; EOSINOPHILS % (AUTO) 0.4 %; HCT - HEMATOCRIT 43.1 % (37.0-47.0); LYMPHOCYTES # (AUTO) 0.8 10^3/uL (1.5-3.5); LYMPHOCYTES % (AUTO) 30.5 %; MEAN CORPUSCULAR HGB CONC 32.5 g/dL (32.0-36.0); MEAN CORPUSCULAR VOLUME 95.6 fL (81.0-99.0); MEAN PLATELET VOLUME 10.6 fL (7.9-10.8); MONOCYTES # (AUTO) 0.3 10^3/uL (0.0-1.0); MONOCYTES % (AUTO) 10.5 %; NEUTROPHILS # (AUTO) 1.6 10^3/uL (1.5-6.6); NEUTROPHILS % (AUTO) 58.2 %; PLT - PLATELET COUNT 214 10^3/uL (130-450); RED BLOOD COUNT 4.51 10^6/uL (4.20-5.40); RED CELL DISTRIBUTION WIDTH 12.7 % (12.0-15.0); WHITE BLOOD COUNT 2.8 x10^3/uL (4.8-10.8)
[2021-04-28 10:04] LABS: ALBUMIN 4.4 g/dL (3.2-5.5); ALBUMIN/GLOBULIN RATIO 1.3 (1.0-2.2); BILIRUBIN,TOTAL 0.2 mg/dL (0.2-1.0); CREATININE 0.6 mg/dL (0.4-1.0); POTASSIUM 3.6 mmol/L (3.5-5.0); TOTAL PROTEIN 7.9 g/dL (6.7-8.2)
[2021-04-28 10:20] LABS: SLIDE REVIEW? Indicated
[2021-04-28 10:25] LABS: RBC MORPHOLOGY (MULTIPLE) NORMAL APPEARANCE (NORMAL)
[2021-04-28 10:27] LABS: PLATELET ESTIMATE, MANUAL NORMAL (130-450,000) (NORMAL); PLATELET MORPHOLOGY NORMAL APPEARANCE (NORMAL); WBC MORPHOLOGY (MULTIPLE) NORMAL APPEARANCE (NORMAL)
[2021-04-28 10:32] LABS: BACTERIA,URINE Few /HPF (None Seen); RBC,URINE 0-5 /HPF (0-5); SQUAMOUS EPITHELIAL CELL,UR MANY Squamous (<= Few)
--- NOTE | 2021-04-28 10:52 | CT Report ---
PROCEDURE: Abdomen/Pelvis WO INDICATIONS: flank/back/pelvic pain, hematuria TECHNIQUE: Noncontrast 5 mm thick sections acquired from the diaphragms to the symphysis. 5 mm coronal and sagi ttal reformats were then performed. For radiation dose reduction, the following was used: automated exposure control, adjustment of mA and/or kV according to patient size. COMPARISON: 03/17/2019 FINDINGS: Image quality: Excellent. ABDOMEN: Lung bases: Lung bases are clear. Heart size is normal. Solid organs: Liver and spleen are normal in size. Gallbladder wall does not appear thickened. P ancreas is normal in contours. No adrenal nodules. Kidneys are normal in size, without hydronephros is or nephrolithiasis. Peritoneum and bowel: Unenhanced bowel loops demonstrate normal wall thickness and caliber. No free fluid or air. Nodes and vessels: No retroperitoneal or mesenteric adenopathy by size criteria. Aorta and inferior vena cava are normal in caliber. Miscellaneous: No ventral hernias. PELVIS: Genitourinary: Bladder wall thickness is normal. This patient is status post hysterectomy. No adnex al masses can be seen. Miscellaneous: No inguinal hernias or adenopathy. Note is made of pelvic phleboliths. Bones: No suspicious bony lesions. No vertebral body compression fractures. Mild levoconvex scolio tic curvature is seen. IMPRESSION: Negative for stones or hydronephrosis. In this patient with a presenting history of hematuria, please consider a follow-up dedicated hematur ia protocol CT for further evaluation. Incidental note is made of: Hysterectomy Pelvic phleboliths Reviewed by: Abdulkadir Plummer MD on 04/28/2021 9:51 AM [facility] Approved by: Abdulkadir Plummer MD on 04/28/2021 9:51 AM [facility] Station ID: [id number]
[2021-04-28] MEDS ORDERED: DEXAMETHASONE 10 MG/ML VIAL IV STA (11:42)
[2021-04-28 12:14] VITALS: BP 121/74
== END 2021-04-28 12:17 | disposition home or self-care (01) ==
LOC: ED 08:42
DX: B34.9 Viral infection, unspecified (principal); M54.50 Low back pain, unspecified; R19.7 Diarrhea, unspecified; F17.200 Nicotine dependence, unspecified, uncomplicated
CPT/HCPCS: 36415; 74176; 80053; 81001; 83690; 85025; 96374; 96375; 99284; J1170; 81003; 87086

== ENCOUNTER 2021-06-02 08:00 | Outpatient (CLI) | payer OTHER | END 2021-06-02 23:59 | LOC: LAB.N 08:00 | PROVIDERS: ATTEND Family Medicine | DX: R05.3 Chronic cough (principal); Z20.822 Contact with and (suspected) exposure to COVID-19 ==